=== PATIENT | female | born 1995 | race Caucasian/White ===

== ENCOUNTER 2022-12-03 08:49 | Outpatient (CLI) | payer MEDICAID, SELFPAY ==
[2022-12-03 09:32] LABS: Hematocrit 36.8 % (37.0-47.0); Hemoglobin 12.2 g/dL (12.0-15.0); Mean Corpuscular HGB Conc 33.2 g/dl (32-36); Mean Corpuscular Hemoglobin 29.3 pg (26-34); Mean Corpuscular Volume 88.5 fl (80-100); Mean Platelet Volume 9.6 fl (7.4-10.4); Platelet Count Result 309 k/mm3 (150-375); Red Blood Count 4.16 M/mm3 (4.2-5.4); Red Cell Distribution Width 13.2 % (11.5-14.5); White Blood Count 11.5 K/mm3 (4.5-10.0)
[2022-12-03 11:18] LABS: HIV 1/2 Ab P24 Ag Result Negative (Negative)
[2022-12-03 13:28] LABS: Hepatitis B Surface Antigen Negative (Negative); Rubella IgG Antibody 43.2 IU/ML
[2022-12-03 16:23] LABS: Rapid Plasma Reagin Non-Reactive (NonReactive)
[2022-12-07 15:18] LABS: CMV IgG Antibody >10.00 U/mL (<0.60)
== END 2022-12-03 08:50 | disposition home or self-care (01) ==
PROVIDERS: Visit Provider Student in an Organized Health Care Education/Training Program
DX: N94.89 Other specified conditions associated with female genital organs and menstrual cycle (principal)
CPT/HCPCS: 36415; 84702; 85027; 86592; 86644; 86703; 86747; 86762; 86787; 86850; 86900; 86901; 87086; 87088; 87340; G0432

== ENCOUNTER 2023-02-08 20:00 | Emergency (ER) | payer OTHER, SELFPAY ==
[2023-02-08] VITALS (9 sets, daily range): BP systolic 118–145; BP diastolic 71–85; PULSE 82–99; RESP 14–26; TEMP 36.4; O2SAT 99–100
--- NOTE | 2023-02-08 20:29 | ECG_ITS ---
Measurements Intervals [place] Rate: 89 P: 42 CA: 176 QRS: -3 QRSD: 89 T: 19 QT: 358 QTc: 436 Interpretive Statements SINUS RHYTHM NORMAL ELECTROCARDIOGRAM NO PREVIOUS ECG AVAILABLE FOR COMPARISON Electronically Signed On 02-09-2023 12:00:16 CDT by Dino Schofield M.D.
[2023-02-08 21:18] LABS: Alanine Aminotransferase 12 U/L (6-35); Albumin Level 4.1 g/dL (3.5-5.1); Alkaline Phosphatase 53 U/L (38-126); Anion Gap 9 mmol/L (8-16); Aspartate Amino Transferase 19 U/L (14-36); Bilirubin,Total 0.2 mg/dL (0.2-1.3); Blood Urea Nitrogen 6 mg/dL (7-17); Calcium 9.1 mg/dL (8.4-10.2); Carbon Dioxide 21 mmol/L (22-30); Chloride 107 mmol/L (98-107); Creatine Kinase 49 U/L (30-135); Estimated CRCL calculation 194 ml/min; Estimated Glomerular Filt Rate > 60; Glucose 87 mg/dL (65-110); Potassium 3.3 mmol/L (3.4-5.0); Sodium 137 mmol/L (137-145)
[2023-02-08 21:29] LABS: Troponin I < 0.012 ng/mL (0.000-0.034)
[2023-02-08 21:33] LABS: Appearance Urine Cloudy (Clear); Bacteria Urine 1+ /hpf; Bilirubin Urine Negative (Negative); Blood Urine Negative (Negative); Color Urine Yellow (Yellow); Glucose Urine UA Negative (Negative); Ketones Urine Negative (Negative); Leukocyte Esterase Ur 1+ LEU/UL (Negative); Need Manual Microscopic Reviewed; Nitrate Urine Negative (Negative); Non Pathogenic Casts 0-2; Protein Urine Negative (Negative); Specific Grav Ur 1.016 (1.001-1.035); Squamous Epithelial Cell Urine Many /hpf (Few); Urobilinogen Urine 0.2 mg/dL (<2.0); WBC Urine 21-50 /hpf; pH Urine 6.5 (5.0-9.0)
[2023-02-08 21:34] LABS: Basophils Percent Auto 0.2 % (0.2-1.2); Eosinophils Absolute Auto 0.3 K/mm3 (0-0.3); Hematocrit 32.8 % (37.0-47.0); Hemoglobin 11.4 g/dL (12.0-15.0); Immature Granulocyte Absolute 0.11 K/mm3 (0.00-0.031); Immature Granulocyte Percent A 0.9 % (0-0.5); Lymphocytes Absolute Auto 4.21 K/mm3 (0.9-3.2); Lymphocytes Percent Auto 33.1 % (18.3-44.2); Mean Corpuscular HGB Conc 34.8 g/dl (32-36); Mean Corpuscular Hemoglobin 31.2 pg (26-34); Mean Corpuscular Volume 89.9 fl (80-100); Mean Platelet Volume 10.1 fl (7.4-10.4); Monocytes Absolute Auto 0.6 K/mm3 (0.1-0.6); Neutrophils Absolute Auto 7.5 K/mm3 (1.3-6.7); Neutrophils Percent Auto 58.8 % (45.5-73.1); Platelet Count Result 300 k/mm3 (150-375); Red Blood Count 3.65 M/mm3 (4.2-5.4); White Blood Count 12.7 K/mm3 (4.5-10.0)
[2023-02-08 21:35] LABS: Add Urine Microscopic? YES
--- NOTE | 2023-02-08 21:42 | ED.GENADULT ---
HPI - General Adult General Chief complaint: Unspecified Stated complaint: burn Time Seen by Provider: 02/08/23 20:27 Source: patient Mode of arrival: ambulatory Limitations: no limitations History of Present Illness HPI narrative: Patient is a 27 y/o female who presents to the ED with c/o an electrical shock to her left upper extremity. Patient reports she went to turn on her wax machine tonight when she felt an electrical shock when she flipped the switch. She states she felt another electrical shock when she went to unplug the wax machine from the wall. This was a normal household outlet. Patient then prompted here for further evaluation. She is currently 17 weeks . BILINGUAL ACCOUNT MANAGER is Dr. Brandt. Patient denies any abdominal pain or vaginal bleeding. She is still feeling baby move. She initially reported having some pain and tingling in her left arm after the shocks, but states this has since resolved. Denies any numbness. Denies dizziness or lightheadedness. Denies chest pain or shortness of breath. Related Data Allergies Allergy/AdvReac Type Severity Reaction Status Date / Time No Known Allergies Allergy Verified 12/22/22 10:10 Review of Systems Review of Systems: CONSTITUTIONAL: Denies fever, chills, or sweats. CARDIOVASCULAR: Denies chest pain. RESPIRATORY: Denies dyspnea. GASTROINTESTINAL: Denies abdominal pain, nausea, vomiting, or diarrhea. GENITOURINARY: Denies vaginal bleeding, dysuria or hematuria. MUSCULOSKELETAL: See HPI. NEUROLOGIC: See HPI. All systems reviewed & are unremarkable except as noted in HPI and below PMFSH Past Medical History Medical History Collapse, lung Suppression of menses Surgical History Surgical History Hx of cholecystectomy Family History Family History Grandparent Lung cancer Social History Social History Smoking status: Current every day smoker Tobacco type: cigarettes Alcohol intake: former Substance use: never Lack of Transportation: No Lack of Food: Never True Current Housing: I Have Housing Concerned About Future Housing: No Difficulty Paying Gas/Electric Bills: No Difficulty Paying for Meds: No Currently Unemployed: YES Education: High School Diploma/GED Difficulty w/ Childcare or Family Care: No Living arrangements: other Additional living arrangements comments: spouse and child Occupation/Education: unemployed Gender identity (if verbalized by the patient): Female Sexual Orientation (if Verbalized by the Patient): Straight or Heterosexual Exam Narrative: GENERAL: Well appearing, obese with BMI of 36.3, non-toxic, in no acute distress. HEAD: Normocephalic, atraumatic. NECK: Supple. No adenopathy, no masses. RESPIRATORY: Airway patent, respirations nonlabored. Clear to auscultation bilaterally, no rales, rhonchi, wheezing. CARDIOVASCULAR: Regular rate and rhythm without murmurs, rubs, or gallops. Peripheral pulses 2+ and equal bilaterally. ABDOMINAL: Soft, uterus gravid, nontender, nondistended, no hepatosplenomegaly. Normoactive BS. MUSCULOSKELETAL: Moves all extremities. Strength/ROM intact without gross deformities. Full range of motion of left upper extremity. Sensation intact. Good capillary refill. No agudelo or skin changes to left upper extremity. SKIN: Warm, dry, normal color. No rashes. NEURO: A&O X3. Speech clear. Cranial nerves II-XII grossly intact. Steady gait. No ataxic movements. No focal deficits. PSYCHIATRIC: Appropriate mood and affect. Normal interaction. Course Vital Signs Vital signs: Vital Signs Temperature 97.6 F 02/08/23 20:03 Pulse Rate 99 02/08/23 20:03 Respiratory Rate 14 02/08/23 20:03 Blood Pressure 145/80 H 02/08/23 20:03 P
[2023-02-08] MEDS: POTASSIUM CHLORIDE 20 MEQ PACKET (FOR LIQUID) PO (22:01)
[2023-02-08] MEDS: CEPHALEXIN 500 MG CAPSULE PO (22:01)
[2023-02-09 01:04] VITALS: BP 111/60; PULSE 77; RESP 16; O2SAT 97
--- NOTE | 2023-02-09 02:59 | PC.NURSE ---
This RN went into pt room to discharge pt and remove her IV, pt then stated i took the IV out already. Pt was instructed to let a medical professional remove them in the future. Pt verbalized understanding.
== END 2023-02-09 03:01 | disposition home or self-care (01) ==
PROVIDERS: Emergency Provider Physician Assistant
DX: O23.42 Unspecified infection of urinary tract in pregnancy, second trimester (principal); T75.4XXA Electrocution, initial encounter; Z3A.17 17 weeks gestation of pregnancy; W86.8XXA Exposure to other electric current, initial encounter
CPT/HCPCS: 36415; 80053; 81001; 82550; 84484; 85025; 87086; 93005; 99284; A9270

== ENCOUNTER 2023-03-01 23:18 | Emergency (ER) | payer OTHER, SELFPAY ==
[2023-03-01 23:26] VITALS: BP 147/76; PULSE 98; RESP 15; TEMP 36.9; O2SAT 100
[2023-03-01 23:42] LABS: Basophils Percent Auto 0.2 % (0.2-1.2); Eosinophils Absolute Auto 0.2 K/mm3 (0-0.3); Eosinophils Percent Auto 1.6 % (0-4.4); Hematocrit 33.7 % (37.0-47.0); Hemoglobin 11.5 g/dL (12.0-15.0); Immature Granulocyte Absolute 0.09 K/mm3 (0.00-0.031); Immature Granulocyte Percent A 0.6 % (0-0.5); Lymphocytes Absolute Auto 3.61 K/mm3 (0.9-3.2); Lymphocytes Percent Auto 25.7 % (18.3-44.2); Mean Corpuscular HGB Conc 34.1 g/dl (32-36); Mean Corpuscular Hemoglobin 31.3 pg (26-34); Mean Corpuscular Volume 91.6 fl (80-100); Mean Platelet Volume 9.9 fl (7.4-10.4); Monocytes Absolute Auto 0.6 K/mm3 (0.1-0.6); Monocytes Percent Auto 4.4 % (2.6-8.5); Neutrophils Absolute Auto 9.5 K/mm3 (1.3-6.7); Neutrophils Percent Auto 67.5 % (45.5-73.1); Platelet Count Result 275 k/mm3 (150-375); Red Blood Count 3.68 M/mm3 (4.2-5.4); Red Cell Distribution Width 12.6 % (11.5-14.5)
[2023-03-01 23:57] LABS: Alanine Aminotransferase 13 U/L (6-35); Albumin Level 4.2 g/dL (3.5-5.1); Alkaline Phosphatase 58 U/L (38-126); Anion Gap 10 mmol/L (8-16); Aspartate Amino Transferase 26 U/L (14-36); Bilirubin,Total 0.2 mg/dL (0.2-1.3); Blood Urea Nitrogen 4 mg/dL (7-17); Calcium 9.6 mg/dL (8.4-10.2); Carbon Dioxide 21 mmol/L (22-30); Chloride 105 mmol/L (98-107); Estimated CRCL calculation 191 ml/min; Estimated Glomerular Filt Rate > 60; Glucose 92 mg/dL (65-110); Potassium 3.4 mmol/L (3.4-5.0); Sodium 136 mmol/L (137-145)
[2023-03-02 00:04] LABS: Total Protein Urine Random 17 mg/dL; Ur Ttl Prot Creatinine Ratio 0.44 mg/mg (0-0.20)
[2023-03-02 00:06] LABS: Appearance Urine Cloudy (Clear); Bacteria Urine Rare /hpf; Bilirubin Urine Negative (Negative); Blood Urine Negative (Negative); Color Urine Yellow (Yellow); Glucose Urine UA Negative (Negative); Ketones Urine Negative (Negative); Leukocyte Esterase Ur Negative LEU/UL (Negative); Need Manual Microscopic Reviewed; Nitrate Urine Negative (Negative); Non Pathogenic Casts 0-2; Protein Urine Negative (Negative); Specific Grav Ur 1.009 (1.001-1.035); Squamous Epithelial Cell Urine Moderate /hpf (Few); Urobilinogen Urine 0.2 mg/dL (<2.0); pH Urine 6.5 (5.0-9.0)
[2023-03-02 00:07] LABS: Uric Acid 3.3 mg/dL (2.5-7.5)
[2023-03-02 00:14] LABS: Add Urine Microscopic? YES
[2023-03-02] MEDS: METOCLOPRAMIDE HCL 10 MG TABLET PO (00:49)
[2023-03-02] MEDS: IBUPROFEN 600 MG TABLET PO (00:49)
[2023-03-02] MEDS: diphenhydrAMINE HCl CAP 25 MG CAPSULE PO (00:49)
--- NOTE | 2023-03-02 00:49 | ED.GENADULT ---
HPI - General Adult General Chief complaint: Recheck/Abnormal Lab/Rx Stated complaint: headache, vision changes, speech problems Time Seen by Provider: 03/02/23 00:35 History of Present Illness HPI narrative: Patient presents to the emergency department with a headache and intermittent episodes of difficulty speaking as well as spots in her vision. She had preeclampsia with her first . And is concerned that it may be starting again. Upon arrival her blood pressure was 147/76. After sitting in the waiting room for a little bit repeat blood pressure is 130s over 70s. She still does not feel well. She has a history of migraines but states this feels different more secondary to the elevated blood pressure. She has taken Tylenol at home without improvement of her symptoms. She is 20 weeks . Denies abdominal pain vaginal discharge or bleeding Related Data Allergies Allergy/AdvReac Type Severity Reaction Status Date / Time No Known Allergies Allergy Verified 02/18/23 09:34 Review of Systems Review of Systems: Review of systems negative except what is [facility] Past Medical History Medical History Collapse, lung Suppression of menses Surgical History Surgical History Hx of cholecystectomy Family History Family History Grandparent Lung cancer Social History Social History Smoking status: Current every day smoker Tobacco type: cigarettes Alcohol intake: former Substance use: never Lack of Transportation: No Lack of Food: Never True Current Housing: I Have Housing Concerned About Future Housing: No Difficulty Paying Gas/Electric Bills: No Difficulty Paying for Meds: No Currently Unemployed: YES Education: High School Diploma/GED Difficulty w/ Childcare or Family Care: No Living arrangements: other Additional living arrangements comments: spouse and child Occupation/Education: unemployed Gender identity (if verbalized by the patient): Female Sexual Orientation (if Verbalized by the Patient): Straight or Heterosexual Exam Narrative: GENERAL: Well-appearing, well-nourished, and in no acute distress. HEAD: Normocephalic, atraumatic. EYES: PERRLA and EOMI. ENT: Nares clear, no rhinorrhea or epistaxis. Mucous membranes moist. NECK: Supple. CHEST: Clear to auscultation. No respiratory distress. HEART: Regular rate and rhythm. ABDOMEN: Soft, nontender, nondistended. EXTREMITIES: Normal range of motion. No edema. SKIN: Warm, dry, no rash. NEURO: No focal deficits. Alert and oriented x3. PSYCH: Normal mood and affect. Course Course Emergency Course: Less likely preeclampsia and more likely blood pressure secondary to headache Blood pressure already improved prior to headache resolution Ibuprofen Frankie and Reglan ordered One-time dose of ibuprofen safe at 20 weeks Vital Signs Vital signs: Vital Signs Temperature 36.9 C 03/01/23 23:26 Pulse Rate 98 03/01/23 23:26 Respiratory Rate 15 03/01/23 23:26 Blood Pressure 147/76 H 03/01/23 23:26 Pulse Oximetry 100 03/01/23 23:26 Oxygen Delivery Room Air 03/01/23 23:26 Temperature 36.9 C 03/01/23 23:26 Pulse Rate 94 03/02/23 01:41 Respiratory Rate 18 03/02/23 01:41 Blood Pressure 102/67 03/02/23 02:11 Pulse Oximetry 100 03/02/23 01:41 Oxygen Delivery Room Air 03/01/23 23:26 Medical Decision Making MDM Narrative Medical decision making narrative: Labs ordered and reviewed. Unremarkable. No proteinuria. Uric acid normal and liver enzymes normal. Blood pressure resolved with headache treatment. Patient reassured and advised to follow-up with her MATERIAL REQUIREMENTS PLANNING MANAGER doctor Vital Signs Vital Signs: Vital Signs Temperature 36.9 C
[2023-03-02 01:04] VITALS: BP 133/83; PULSE 104; RESP 20; O2SAT 100
[2023-03-02 01:18] VITALS: BP 119/78
[2023-03-02 01:41] VITALS: BP 119/75; PULSE 94; RESP 18; O2SAT 100
[2023-03-02 02:11] VITALS: BP 102/67
[2023-03-02 02:49] VITALS: BP 117/80; PULSE 97; RESP 16; O2SAT 98
== END 2023-03-02 02:51 | disposition home or self-care (01) ==
PROVIDERS: Emergency Provider Emergency Medicine
DX: O13.2 Gestational [pregnancy-induced] hypertension without significant proteinuria, second trimester (principal); R51.9 Headache, unspecified; O99.332 Smoking (tobacco) complicating pregnancy, second trimester; F17.210 Nicotine dependence, cigarettes, uncomplicated; Z90.49 Acquired absence of other specified parts of digestive tract; Z3A.20 20 weeks gestation of pregnancy
CPT/HCPCS: 36415; 80053; 81001; 82570; 84156; 84550; 85025; 87086; 87088; 99283; A9270

== ENCOUNTER 2023-04-20 10:47 | Outpatient (CLI) | payer OTHER, SELFPAY ==
[2023-04-20 12:41] LABS: Basophils Percent Auto 0.3 % (0.2-1.2); Eosinophils Absolute Auto 0.1 K/mm3 (0-0.3); Eosinophils Percent Auto 1.1 % (0-4.4); Hematocrit 33.3 % (37.0-47.0); Immature Granulocyte Absolute 0.08 K/mm3 (0.00-0.031); Immature Granulocyte Percent A 0.7 % (0-0.5); Lymphocytes Percent Auto 23.7 % (18.3-44.2); Mean Corpuscular Hemoglobin 30.2 pg (26-34); Mean Corpuscular Volume 91.5 fl (80-100); Mean Platelet Volume 10.3 fl (7.4-10.4); Monocytes Absolute Auto 0.6 K/mm3 (0.1-0.6); Monocytes Percent Auto 5.8 % (2.6-8.5); Neutrophils Absolute Auto 7.5 K/mm3 (1.3-6.7); Neutrophils Percent Auto 68.4 % (45.5-73.1); Platelet Count Result 306 k/mm3 (150-375); Red Blood Count 3.64 M/mm3 (4.2-5.4); Red Cell Distribution Width 12.8 % (11.5-14.5)
[2023-04-20 13:03] LABS: Alanine Aminotransferase 11 U/L (6-35); Alkaline Phosphatase 89 U/L (38-126); Anion Gap 8 mmol/L (8-16); Aspartate Amino Transferase 17 U/L (14-36); Bilirubin,Total 0.4 mg/dL (0.2-1.3); Blood Urea Nitrogen 5 mg/dL (7-17); Calcium 9.1 mg/dL (8.4-10.2); Carbon Dioxide 22 mmol/L (22-30); Chloride 105 mmol/L (98-107); Estimated Glomerular Filt Rate > 60; Glucose 116 mg/dL (65-110); Glucose 1 Hour PP 50gm Dose 116 mg/dL; Potassium 3.2 mmol/L (3.4-5.0); Sodium 135 mmol/L (137-145)
[2023-04-20 13:32] LABS: HIV 1/2 Ab P24 Ag Result Negative (Negative)
== END 2023-04-20 10:48 | disposition home or self-care (01) ==
LOC: ANHLAB 10:48
PROVIDERS: Visit Provider Obstetrics & Gynecology
DX: Z87.59 Personal history of other complications of pregnancy, childbirth and the puerperium (principal)
CPT/HCPCS: 36415; 80053; 82947; 85025; 86703; G0432

== ENCOUNTER 2023-05-03 09:45 | Outpatient (CLI) | payer BC, OTHER, SELFPAY ==
[2023-05-03 10:52] LABS: Creatinine Urine 133.7 mg/dL
[2023-05-03 11:01] LABS: Creatinine 24 Hour Urine 1.4 gm/24 (0.8-1.8); Total Volume 24 Hour Urine 1100 ml
== END 2023-05-03 09:46 | disposition home or self-care (01) ==
LOC: ANHLAB 09:46
PROVIDERS: Visit Provider Obstetrics & Gynecology
DX: Z34.90 Encounter for supervision of normal pregnancy, unspecified, unspecified trimester (principal); Z3A.00 Weeks of gestation of pregnancy not specified
CPT/HCPCS: 81050; 82570

== ENCOUNTER 2023-05-24 22:31 | Observation (INO) | payer OTHER, SELFPAY ==
[2023-05-24 23:04] VITALS: BP 117/53; PULSE 115
[2023-05-24 23:15] VITALS: BP 115/68; PULSE 105
[2023-05-24 23:25] VITALS: BMI 35.3
[2023-05-24 23:25] LABS: Appearance Urine Clear (Clear); Bacteria Urine None Seen /hpf; Bilirubin Urine Negative (Negative); Blood Urine Negative (Negative); Color Urine Yellow (Yellow); Glucose Urine UA Negative (Negative); Ketones Urine 1+ mg/dL (Negative); Leukocyte Esterase Ur Trace LEU/UL (Negative); Nitrate Urine Negative (Negative); Non Pathogenic Casts 0-2; Protein Urine Negative (Negative); RBC Urine 0-2 /hpf (0-2); Specific Grav Ur 1.022 (1.001-1.035); Squamous Epithelial Cell Urine Few /hpf (Few)
--- NOTE | 2023-05-24 23:25 | OBADM ---
This patient, Jenny Anderson, admitted to the OB room OB Post 116 for observation. Patient/family oriented to hospital policies and general routines including ID bracelet, bed and alarms, visiting hours, pain management, procedures, bathroom and other care routines, personal items, smoking policy, room service/diet, and visiting hours. Patient/Family are encouraged to report perceived risks to care and to ask questions if they do not understand what they are told or what they should do.
[2023-05-24 23:29] LABS: Add Urine Microscopic? YES
[2023-05-24 23:30] VITALS: BP 124/76; PULSE 105
[2023-05-24 23:45] VITALS: BP 118/81; PULSE 107
[2023-05-25] VITALS: BP 108/74; PULSE 97
--- NOTE | 2023-05-25 01:25 | P.PNOB_ITS ---
OB - Triage/Final Diagnosis Visit Information Comments/Additional reasons for admission: I have assessed the risk for this patient, Jenny Anderson, and determined that she would benefit from observation care. Evaluation Laboratory results: Laboratory Tests 05/24/23 23:10 Urine Color Yellow Urine Appearance Clear Urine pH 6.0 Ur Specific [place] 1.022 Urine Protein Negative Urine Glucose (UA) Negative Urine Ketones 1+ H Ur Blood (Man) Negative Urine Nitrate Negative Urine Bilirubin Negative Urine Urobilinogen 1.0 Leukocyte Esterase Rfl Trace H Urine RBC 0-2 Urine WBC 11-20 H Ur Squamous Epith Cells Few Urine Bacteria None seen Urine Casts 0-2 Vital signs: Vital Signs - 24 hr 05/24/23 23:04 05/24/23 23:15 05/24/23 23:30 Pulse Rate 115 H 105 H 105 H Blood Pressure 117/53 L 115/68 124/76 Oxygen Delivery 05/24/23 23:45 05/25/23 00:00 05/24/23 23:25 Pulse Rate 107 H 97 Blood Pressure 118/81 108/74 Oxygen Delivery Room Air Final Diagnosis (1) Decreased movement: Code(s): O36.8190 - Decreased movements, unspecified trimester, not applicable or unspecified Status: Acute
== END 2023-05-25 01:18 | disposition home or self-care (01) ==
PROVIDERS: Admitting Provider Obstetrics & Gynecology; Visit Provider Obstetrics & Gynecology
DX: O36.8130 Decreased fetal movements, third trimester, not applicable or unspecified (principal); Z3A.32 32 weeks gestation of pregnancy
CPT/HCPCS: 81001; 87086; 87088; G0378; G0379

== ENCOUNTER 2023-06-15 08:41 | Outpatient (RCR) | payer OTHER, SELFPAY ==
[2023-06-08 12:00] VITALS: BP 125/71; PULSE 83
--- NOTE | ~2023-06-15 | US_ITS ---
EXAMINATION: US OB BPP wo non-stress DATE: 06/15/2023 09:35 INDICATION: Large for gestational age during third trimester TECHNIQUE: Real-time pelvic ultrasound was performed. The interpreting radiologist was not present fo r the study. COMPARISON: None. FINDINGS: There is a single living fetus in vertex presentation. The placenta is posterior. Amniotic fluid vol ume is subjectively normal. heart rate is 132 beats per minute (bpm). Biophysical profile performed by the technologist: breathing (30 sec sustained breathing in 30 minutes): 2 out of 2 movement (3 gross body movements in 30 minutes): 2 out of 2 tone (one episode of yxxshds-ojktppxxp-zrxycmd limb movement): 2 out of 2 Amniotic fluid pocket (2 cm): 2 out of 2 Total score: 8 out of 8 IMPRESSION: 1. Single living fetus in vertex presentation with heart rate of 132 bpm. 2. Biophysical profile 8 out of 8. Reviewed, dictated and finalized at location [facility]
--- NOTE | ~2023-06-15 | US_ITS ---
EXAMINATION: US OB BPP wo non-stress DATE: 06/08/2023 11:57 NURSE PRACTITIONER PHYSICIANS ASSISTANT INDICATION: Large for gestational age. TECHNIQUE: Real-time transabdominal obstetric ultrasound. FINDINGS: No prior studies for comparison. There is a single living fetus in vertex presentation. The placenta is anterior. cardiac activity and movement is noted with a heart rate of 142 beats per minute. Biophysical profile: breathin of 2 movement: 2 of 2 tone: 2 of 2 Amniotic flud pocket: 2 of 2 Total score: 8 of 8 IMPRESSION: 1. Single living intrauterine in vertex presentation. 2: Total biophysical profile score of 8/8. Reviewed, dictated and finalized at location [facility] PRACTITIONER PHYSICIANS ASSISTANT
[2023-06-15 09:40] VITALS: BP 103/68; PULSE 90
== END 2023-09-06 23:59 | disposition home or self-care (01) ==
LOC: ANHOBOP 08:41
PROVIDERS: Visit Provider Obstetrics & Gynecology
DX: O36.63X0 Maternal care for excessive fetal growth, third trimester, not applicable or unspecified (principal); Z3A.34 34 weeks gestation of pregnancy; Z3A.35 35 weeks gestation of pregnancy
CPT/HCPCS: 59025; 76819

== ENCOUNTER 2023-06-20 17:50 | Inpatient (IN) | payer OTHER, SELFPAY ==
[2023-06-20] VITALS (16 sets, daily range): BP systolic 109–133; BP diastolic 75–87; PULSE 75–101; RESP 16; TEMP 36.4–36.8; O2SAT 93–96; BMI 35.9
--- NOTE | 2023-06-20 18:43 | P.PNAN_ITS ---
Anes - Eval Pre Procedure Procedure: labor epidural Date/Time: 06/20/23 18:43 Pre Op Diagnosis: Leaking Patient Data Age: 28 Gender: F Height: Weight: Allergies Allergy/AdvReac Type Severity Reaction Status Date / Time No Known Allergies Allergy Verified 06/09/23 10:34 Home Medications Medication Instructions Recorded Confirmed Type aspirin 81 mg tablet,delayed 81 mg PO DAILY 04/14/23 06/09/23 History release (Adult Low Dose Aspirin) vitamins-iron fumarate 65 1 tablet PO DAILY 04/14/23 06/09/23 History mg iron-folic acid 1 mg tablet Patient hx anesthesia problems: none Family hx anesthesia problems: none Results Review: All pre-operative results and documents have been reviewed as part of the pre- operative evaluation. FOR[facility]LY [facility], [facility] Past Medical History Medical History Collapse, lung Encounter for screening examination for sexually transmitted disease Suppression of menses Surgical History Surgical History Hx of cholecystectomy Family History Family History Grandparent Lung cancer Social History Social History Smoking status: Current every day smoker Tobacco type: cigarettes Alcohol intake: former Substance use: never Lack of Transportation: No Lack of Food: Never True Current Housing: I Have Housing Concerned About Future Housing: No Difficulty Paying Gas/Electric Bills: No Difficulty Paying for Meds: No Currently Unemployed: No Education: High School Diploma/GED Difficulty w/ Childcare or Family Care: No Living arrangements: other Additional living arrangements comments: spouse and child Occupation/Education: unemployed Gender identity (if verbalized by the patient): Female Sexual Orientation (if Verbalized by the Patient): Straight or Heterosexual Exam Day of Procedure 06/20/23 18:43 Patient weight: obese Heart: regular rate and rhythm Lungs: normal air movement Airway: Mallampati scale Neurological: alert and oriented
[2023-06-20 19:08] LABS: Basophils Percent Auto 0.2 % (0.2-1.2); Eosinophils Absolute Auto 0.1 K/mm3 (0-0.3); Eosinophils Percent Auto 0.5 % (0-4.4); Hematocrit 33.9 % (37.0-47.0); Hemoglobin 10.8 g/dL (12.0-15.0); Immature Granulocyte Absolute 0.06 K/mm3 (0.00-0.031); Immature Granulocyte Percent A 0.4 % (0-0.5); Lymphocytes Absolute Auto 3.14 K/mm3 (0.9-3.2); Lymphocytes Percent Auto 23.5 % (18.3-44.2); Mean Corpuscular HGB Conc 31.9 g/dl (32-36); Mean Corpuscular Hemoglobin 26.7 pg (26-34); Mean Corpuscular Volume 83.7 fl (80-100); Mean Platelet Volume 10.9 fl (7.4-10.4); Monocytes Absolute Auto 0.5 K/mm3 (0.1-0.6); Monocytes Percent Auto 3.4 % (2.6-8.5); Neutrophils Absolute Auto 9.6 K/mm3 (1.3-6.7); Platelet Count Result 276 k/mm3 (150-375); Red Blood Count 4.05 M/mm3 (4.2-5.4); Red Cell Distribution Width 13.7 % (11.5-14.5); White Blood Count 13.4 K/mm3 (4.5-10.0)
--- NOTE | 2023-06-20 19:09 | LDADM ---
This patient, Jenny Anderson, was admitted to Labor/Delivery/Recovery 104 on 06/20/23 at 17:50. Plans for labor, pain management and were discussed with patient. Patient/family oriented to hospital policies and general routines including ID bracelet, bed and alarms, visiting hours, pain management, procedures, bathroom and other care routines, personal items, smoking policy, room service/diet and guest tray routines, security routines, and visiting hours. Patient/Family are encouraged to report perceived risks to care and to ask questions if they do not understand what they are told or what they should do. See OBIX for further documentation.
[2023-06-20 19:22] LABS: Uric Acid 4.6 mg/dL (2.5-7.5)
[2023-06-20 19:26] LABS: Alanine Aminotransferase 12 U/L (6-35); Albumin Level 3.4 g/dL (3.5-5.1); Alkaline Phosphatase 219 U/L (38-126); Anion Gap 12 mmol/L (8-16); Aspartate Amino Transferase 17 U/L (14-36); Bilirubin,Total 0.3 mg/dL (0.2-1.3); Blood Urea Nitrogen 6 mg/dL (7-17); Calcium 8.8 mg/dL (8.4-10.2); Carbon Dioxide 18 mmol/L (22-30); Chloride 106 mmol/L (98-107); Estimated Glomerular Filt Rate > 60; Glucose 110 mg/dL (65-110); Potassium 3.6 mmol/L (3.4-5.0); Sodium 136 mmol/L (137-145)
[2023-06-20] MEDS: LACTATED RINGERS 1,000 ML 125 ML IV CONT (21:26)
[2023-06-20] MEDS: AMPICILLIN 2 GM/NS 100 ML 2 GM/100 ML BAG IVPB (21:26)
[2023-06-21] VITALS (47 sets, daily range): BP systolic 89–242; BP diastolic 59–219; PULSE 25–210; RESP 16–20; TEMP 36.1–36.8; O2SAT 58–100
[2023-06-21] MEDS: AMPICILLIN 1 GM/NS 50 ML 1 GM/50 ML BAG IVPB ×2 (01:26→05:34)
[2023-06-21] MEDS: OXYTOCIN 30 UNITS/NS 500 ML 30 UNITS/500 ML BAG IV CONT (03:33)
[2023-06-21] MEDS: CALCIUM CARBONATE (TUMS) 500 MG (200 MG ELEMENTAL) PO (04:37)
[2023-06-21] MEDS: LACTATED RINGERS 1,000 ML 999 ML IV CONT ×2 (06:01→07:03)
[2023-06-21] MEDS: fentaNYL CITRATE INJ (*CRX) 100 MCG/2 ML VIAL 50 MCG IV PUSH ×2 (07:16→08:11)
--- NOTE | 2023-06-21 07:27 | PCWOUND ---
WOCN NOTE Received nurse driven consult that pressure ulcer present. Spoke with patient's day RN, who states that was documented in error. Patient has no wounds.
[2023-06-21] MEDS: ACETAMINOPHEN 325 MG TABLET 650 MG PO (09:30)
--- NOTE | 2023-06-21 09:30 | PM.OBPRVD ---
OB - Vaginal Delivery Note Procedure Delivery date: 06/21/23 Induction method: None Delivery augmentation: Rupture of Membranes and Pitocin Delivery monitor: External FHT and External Uterine Route of delivery: Episiotomy description: None Laceration Description: Periurethral Specimen: No Quantitative Blood Loss (ml): 100 Anesthesia type: None Disposition: Floor Complications: No immediate complications Narrative: patient was unmedicated and preferred to push in hands and knees positioning. Patient pushed for a spontaneous vaginal delivery. The fetus was delivered atraumatically. The cord was clamped and cut after 1 minute of life. Cord blood was collected for blood type and Coomb's testing. The placenta delivered spontaneously and was noted to be intact. The perineum was inspected and noted to be intact. There was a superficial periurethral laceration that was hemostatic. The uterus was firm and good hemostasis was noted. Baby Date of : 06/21/23 Time of : 09:12 Weeks of gestation at delivery: 36 gender: Male presentation: vertex position: Right Occiput Anterior Placenta delivery description: Spontaneous Cord Vessel Description: Nuchal Cord AMG Delivery Billing Delivery Delivery: Delivery Charge
[2023-06-21] MEDS: OXYTOCIN 30 UNITS/NS 500 ML 30 UNITS/500 ML BAG 125 UNITS IV CONT (09:40)
[2023-06-21] MEDS: WITCH HAZEL 40 PADS 1 PAD TOPICAL (11:22)
[2023-06-21] MEDS: BENZOCAINE 20% AER SPR (*SP) 56 GM CAN 1 SPRAY TOPICAL (11:23)
[2023-06-21] MEDS: IBUPROFEN 600 MG TABLET PO (14:51)
[2023-06-21 15:49] LABS: Rapid Plasma Reagin Non-Reactive (NonReactive)
[2023-06-22] MEDS: IBUPROFEN 600 MG TABLET PO ×3 (01:00→16:54)
[2023-06-22] MEDS: ACETAMINOPHEN 325 MG TABLET 650 MG PO (04:23)
[2023-06-22 05:38] LABS: Hematocrit 30.6 % (37.0-47.0); Hemoglobin 9.5 g/dL (12.0-15.0)
[2023-06-22 07:10] VITALS: BP 102/62; PULSE 75; RESP 16; TEMP 37.1; O2SAT 96
--- NOTE | 2023-06-22 07:27 | WPDANLDPN2 ---
Anes-Prog Note L&D Date/Time: 06/22/23 07:27 Comfortable throughout: labor and delivery Neuraxial method: epidural Epidural/Spinal procedure site: clean & non-tender Neuro status: Neuro function grossly intact. Cardiovascular status: normal Respiratory status: normal Airway patency: baseline Mental status: baseline Post-Op hydration status: normal Vital Signs: Last Vital Signs Temp 36.6 C 06/21/23 23:50 Pulse 71 06/21/23 23:50 Resp 18 06/21/23 23:50 BP 119/66 06/21/23 23:50 Pulse Ox 95 06/21/23 17:37 O2 Del Method Room Air 06/21/23 23:50 Pain score (VAS): 10 I/O: Intake & Output 06/21/23 06/21/23 06/22/23 15:59 23:59 07:59 Intake Total 500 Output Total 250 Balance 250 Post-procedural complaints: none Patient feedback: Patient satisfied with anesthetic care.
[2023-06-22] MEDS: MULTIVIT/MIN/PREN/FOL AC/IRON TABLET 1 TAB PO (07:28)
[2023-06-22] MEDS: POLYSACCHARIDE IRON COMPLEX 150 MG CAPSULE PO ×2 (07:28→16:54)
[2023-06-22] MEDS: DOCUSATE SODIUM 100 MG CAPSULE PO ×2 (07:28→16:55)
--- NOTE | 2023-06-22 11:41 | PC.NURSE ---
0900 - Purposefully rounded to assess needs. Father of baby is in the bed and states Mother is outside and is in the nursery for testing. Name was written on the communication board and father was encouraged to call if there is a request for assistance, questions or concerns. Primary RN reported helping with latching around [phone] with mother having her own interesting position and infant's blood sugar resulted recently at 71mg/dl.
--- NOTE | 2023-06-22 14:47 | PC.NURSE ---
[id number] Purposefully rounded to introduce, then consulted with patient to assess needs related to . Mother led the conversation with her?plans to feed?her infant, the?experience so far, her experience of successfully her first child. Mother is laying on her right side attempting to latch infant to the left breast. With mother's consent LC assisted with a laid-back position for to latch. 36 EGA latches shallow, dimpling is seen on the cheek, will occasionally latch appropriately and suckle for a few sucks, then holds the nipple in his mouth. We discussed the dimpling is a sign of not effectively . We reviewed big, open wide gape with the teacup hold to get the nipple to the soft palate instead of in the front of his mouth. Mother is able to hand express colostrum from her breast, has breastfed before, however; she attempts to latch with her fingers where the infant's lips need to go for an optimal latch. Encouraged understanding of the benefits of skin to skin (demonstrating unwrapping infant and placing upright on her chest), stimulating with massage touch, changing positions to encourage wakefulness, how to watch for early feeding cues, responsive feeding, feeding on demand (aiming for 8-12 times in 24 hours, about every 2-3 hours), milk production, building/maintaining a milk supply, duration of feeding, signs of adequate intake/output and how to record on the feeding sheet. Mother works well with her infant with encouragement and education. We reviewed protecting the nipple with optimal positioning and latching. Discussed with mother of protecting her milk supply with initiating pumping when doesn't latch, receives a bottle, has a weak suck, and or holds nipple in his mouth. Primary RN is pace-bottle feeding . Breast pump provided due to ineffective . Instructions given on cleaning, care, usage, that there should be no pain, pumping schedule for milk production, collection, and storage of human milk. Patient was assessed for correct placement, flange size, to pump for comfort and nipple stretching/stimulation for adequate milk production aiming for 8-10 breast stimulations in 24 hours between infant and pumping. Mother has a wide space between her tubular breast with nipples facing inward. There is an appearance of hypoplastic breast, however; mother states she breastfed her first successfully. Inpatient/outpatient resources provided with feeding sheet, name written on the communication board, and the mom/baby guide. Mother voiced understanding of information, demonstrated learning and will call if there is a request for assistance. Primary RN is present in the room.
[2023-06-22 19:30] VITALS: BP 110/62; PULSE 65; RESP 16; TEMP 37.1
--- NOTE | 2023-06-23 08:48 | P.DS_ITS ---
DS: Admitting Diagnosis Discharge Date 06/23/23 Admitting Diagnosis intrauterine at 36w premature rupture of membranes DS: Discharge Diagnosis Discharge Diagnosis (1) Normal vaginal delivery: Code(s): O80 - Encounter for full-term uncomplicated delivery Status: Acute OB - DS: Summary OB Procedures : None OB Procedures Intrapartum: Spontaneous Vag Delivery OB Procedures: : None Peripartum Data Laceration Description: Periurethral Episiotomy description: None Status at Discharge Functional status at discharge: independent ambulation Overall status at discharge: patient is back to baseline Time Spent with Patient Time attestation: Total time spent providing and/or coordinating discharge services: Time spent: Less than 30 minutes Exam Const: General: comfortable and no acute distress Resp: Effort & Inspection: normal respiratory effort Auscultation: clear to auscultation bilaterally Cardio: Rate: regular rate GI: GI Palp: Yes Soft to palpation Auscultation: normal bowel sounds Other: Fundus firm below umbilicus Psych: Appearance: grossly normal Mental Status: mental status grossly normal Affect: normal affect Discharge Plan Discharge Discharging Clinician: Adrián Brandt Patient Disposition: Home, Self-Care Activity: as tolerated and pelvic rest Diet: regular Patient Instructions: Antibiotic Form, How to Stop Smoking (DC), Vaginal Delivery (DC) Stand Alone Forms: General Discharge Information Follow-up/Referrals: Adrián Brandt MD [Physician] - Discharge Medications: New acetaminophen 500 mg tablet 500 mg PO Q6H PRN (Reason: pain) Qty: 30 0RF ibuprofen 600 mg tablet 600 mg PO Q6H PRN (Reason: pain) Qty: 30 0RF Continued vit-iron fum-folic ac 65 mg iron- 1 mg tablet 1 tablet PO DAILY Discontinued aspirin [Adult Low Dose Aspirin] 81 mg tablet,delayed release (DR/EC) 81 mg PO DAILY Date of admission: 06/20/23 17:50 Primary Care Provider: PHYSICIAN,OFFSET DUPLICATING MACHINE OPERATOR Admitting Provider: Ronak Alcantar Attending physician on admission: Ronak Alcantar Condition: Stable
[2023-06-23 09:00] VITALS: BP 134/89; PULSE 84; RESP 16; TEMP 36.8; O2SAT 97
[2023-06-23] MEDS: MULTIVIT/MIN/PREN/FOL AC/IRON TABLET 1 TAB PO (09:17)
[2023-06-23] MEDS: POLYSACCHARIDE IRON COMPLEX 150 MG CAPSULE PO (09:17)
[2023-06-23] MEDS: IBUPROFEN 600 MG TABLET PO (09:17)
--- NOTE | 2023-06-23 09:46 | PC.NURSE ---
[id number] Purposefully rounded to assess needs. Mother is confident and voiced that the baby is latching better today. Mother is supplementing after with formula and is protecting the milk supply with pumping to achieve at minimum 8 stimulations in a 24 hour period. LC's name is on the communication board and mother voiced she would call for the next feeding.
--- NOTE | 2023-06-23 15:39 | PC.NURSE ---
1433 discharged to a no care bed.
--- NOTE | 2023-06-23 15:43 | PC.NURSE ---
1000 Patient viewed the discharge video Mother & Baby Care, The First Two Weeks . Patient was given the opportunity and encouraged to ask questions. Patient verbalized understanding of information shared and has been given the mother/baby guide for home reference.
[2023-06-25 11:32] VITALS: BP 134/91; PULSE 78; RESP 18; TEMP 36.9; O2SAT 100
== END 2023-06-23 14:33 | disposition home or self-care (01) | DRG 560 ==
LOC: ANHLDR 21:22 → ANHOB2 06-21 14:35 → ANHLDR 06-24 08:35 → ANHOB2 06-24 08:35
PROVIDERS: Admitting Provider Obstetrics & Gynecology; Visit Provider Student in an Organized Health Care Education/Training Program
DX: O69.81X0 Labor and delivery complicated by cord around neck, without compression, not applicable or unspecified (principal); O71.82 Other specified trauma to perineum and vulva; Z3A.36 36 weeks gestation of pregnancy; Z37.0 Single live birth
CPT/HCPCS: 36415; 80053; 84112; 84550; 85014; 85018; 85025; 86592; 86850; 86900; 86901; A9270; J0290; J2590; J2795; J3010; J7120

== ENCOUNTER 2023-10-14 10:42 | Outpatient (CLI) | payer OTHER, SELFPAY ==
[2023-10-14 10:59] LABS: Hematocrit 35.9 % (37.0-47.0); Hemoglobin 11.8 g/dL (12.0-15.0)
[2023-10-14 11:51] LABS: HIV 1/2 Ab P24 Ag Result Negative (Negative)
[2023-10-14 12:11] LABS: Hepatitis B Surface Antigen Negative (Negative)
[2023-10-14 12:17] LABS: HAV RESULT Negative (Negative); Hepatitis B Core IgM Result Negative (Negative)
[2023-10-14 12:28] LABS: Hepatitis C Virus Antibody Negative (Negative)
[2023-10-14 21:02] LABS: Rapid Plasma Reagin Non-Reactive (NonReactive)
== END 2023-10-14 10:43 | disposition home or self-care (01) ==
LOC: ANHLAB 10:44
PROVIDERS: Visit Provider Student in an Organized Health Care Education/Training Program
DX: Z11.3 Encounter for screening for infections with a predominantly sexual mode of transmission (principal); N94.89 Other specified conditions associated with female genital organs and menstrual cycle
CPT/HCPCS: 36415; 80074; 84702; 85014; 85018; 86592; 86695; 86696; 86703; G0432

== ENCOUNTER 2024-04-21 02:07 | Day surgery (SDC) | payer OTHER, SELFPAY ==
[2024-04-19 10:18] VITALS: BMI 40.2
--- NOTE | 2024-04-19 10:23 | PC.NURSE ---
Report to the Outpatient Waiting Room, entrance under the green pavilion located off [facility], at time _1130_ on date _[id number]_. Planned Procedure Time: _130pm_.? Time changes happen often and if your time is changed the preop area will call you the afternoon before. - You and your visitor will be asked to self-screen and do not enter if you have any COVID symptoms. Please call surgeon if you need to reschedule. - A mask is optional within the hospital at this time. Patients may have clear liquids (water, carbonated beverages, clear teas, apple juice) until 3 hours prior to surgery with a maximum of 20 ounces. - No food from midnight until time of surgery and no smoking Take only the following medications with a SIP of water on the morning of surgery: __None__ DO NOT STOP ANY OF YOUR OTHER PRESCRIPTION MEDICATIONS PRIOR TO SURGERY EXCEPT THE FOLLOWING Medications to discontinue per physician ___None___ Date to take last dose Please no make-up, nail portuguese, hairspray, perfume, deodorant, or body powder the day of surgery.? No jewelry (including any body piercings) or valuables the day of surgery, leave them at home.? Please take a shower or bath the night before, or the morning of, surgery with an antibacterial soap.? Wear comfortable, loose fitting clothing.? - Jewelry must be removed prior to entering the operating room.? Rings and piercings that are not removed may be cut off. - The hospital will not accept responsibility for valuables.? - Please leave all valuables, including medications, at home the day of surgery. If you are going home after surgery, a licensed explosives truck driver must drive you home.? - NO public transportation without another adult if you receive anesthesia. - We recommend that an adult stay with you for 24 hours following discharge. - We also recommend that you do not drive, make important decision, drink alcoholic beverages, or take any drugs that were not prescribed by your health care provider for at least 24 hours after your discharge time. Follow any additional instructions given to you from your surgeon. Telephone instructions given to __Taylor__and asked if any additional questions and then verbalized understanding. Patient advised to call surgeon office or pre surgery nurse liaison [phone] if any additional questions.
--- NOTE | 2024-04-21 08:03 | WPDHPUPDATE1 ---
History and Physical Update Update Date/Time: 04/21/24 08:03 History and Physical has been reviewed, including an updated exam of the patient. There are NO changes in the patient's condition. Risks, benefits, and alternatives have been discussed and questions answered. Patient agrees to proceed with suction D&C. Will give azithromycin 1g PO orally 1 hour before procedure.
[2024-04-21 11:32] VITALS: BP 105/78; PULSE 92; RESP 18; TEMP 36.4; O2SAT 98
[2024-04-21 11:46] VITALS: BMI 40.2
[2024-04-21] MEDS: LACTATED RINGERS 1,000 ML 30 ML IV CONT (11:55)
[2024-04-21] MEDS: ACETAMINOPHEN 500 MG TABLET 1000 MG PO (12:01)
[2024-04-21] MEDS: AZITHROMYCIN 250 MG TABLET 1000 MG PO (12:17)
--- NOTE | 2024-04-21 12:21 | P.PNAN_ITS ---
Anes - Initial Pre Proc Eval Procedure: Operation Date: 04/21/24 13:30 Proposed Procedures p Suction Dilation and Curettage - Geetha Springer MD Date/Time: 04/21/24 12:21 Surgeon: Geetha Springer MD Pre Op Diagnosis: Missed Ab Patient Data Age: 28 Gender: F Height: 1.63 m Weight: 106.4 kg Allergies Allergy/AdvReac Type Severity Reaction Status Date / Time No Known Allergies Allergy Verified 04/21/24 11:45 Home Medications Medication Instructions Recorded Confirmed Type No Home Medications 04/19/24 04/19/24 History Patient hx anesthesia problems: none Family hx anesthesia problems: none Results Review: All pre-operative results and documents have been reviewed as part of the pre- operative evaluation. [facility] Past Medical History Medical History (Updated 04/20/24 @ 15:56 by Fabian Gallego DO) Collapse, lung Encounter for screening examination for sexually transmitted disease Migraine Suppression of menses Surgical History Surgical History Hx of cholecystectomy Family History Family History Grandparent Lung cancer Social History Social History Smoking packs per day: 1 Smoking cigarettes per day: 20.0 Years smoked: 13 Smoking pack-years: 13.00 Smoking status: Current every day smoker Tobacco type: cigarettes Second hand tobacco smoke exposure: Yes Alcohol intake: former Substance use: never Do You Feel Safe in your Home?: Yes Lack of Transportation: No Lack of Food: Never True Current Housing: I Have Housing Concerned About Future Housing: No Difficulty Paying Gas/Electric Bills: No Difficulty Paying for Meds: No Currently Unemployed: No Education: High School Diploma/GED Difficulty w/ Childcare or Family Care: No Living arrangements: with family Additional living arrangements comments: spouse and child Occupation/Education: unemployed Gender identity (if verbalized by the patient): Female Sexual Orientation (if Verbalized by the Patient): Straight or Heterosexual Spiritual care concerns: No Anes - Eval Final PreProcedure Day of Procedure 04/21/24 12:21 Patient weight: morbidly obese Heart: regular rate and rhythm Lungs: clear to auscultation Airway: Mallampati scale class II Neurological: alert and oriented Last oral intake: >/= 8 hours ASA classification: III Emergent: no Anesthetic plan: proceed Anesthesia type and monitoring: general GIVS and standard monitoring Results Review: All pre-operative results and documents have been reviewed as part of the pre- operative evaluation. Informed Consent: The patient's anesthetic plan and its attendant risks and benefits were discussed with the patient/family/POA. Questions were solicited and answers provided to the satisfaction of the patient/family/POA.
[2024-04-21] MEDS: fentaNYL CITRATE INJ (*CRX) 100 MCG/2 ML VIAL 25 MCG IV PUSH (13:13)
[2024-04-21 14:08] VITALS: BP 103/62; PULSE 80; RESP 20; O2SAT 97
--- NOTE | 2024-04-21 14:25 | W.PM.PROC2 ---
Procedure Note - Detailed Date of Procedure 04/21/24 Pre-op Diagnosis Missed Ab Recurrent loss Post-op Diagnosis Same Procedure Performed Suction D&C under ultrasound guidance Surgeon Geetha Springer MD Anesthesia MAC Findings Large clot was in the cervix; removed. Cervix dialed 1-2cm. Uterus sounded to 12cm; a significant amount of tissue was removed. Good hemostasis at end of case. Products of conception/blood = 200cc. Description of Procedure Jenny was taken to the operating room where she was placed under sedation without complications. She was then prepped and draped in the usual sterile fashion in the dorsal lithotomy position with her legs in low Carson stirrups. A time-out was performed and she received azithromycin 1000mg pre-operatively. A bivalve speculum was placed within the vagina where the cervix was easily identified. The anterior lip of the cervix was grasped with a single-tooth tenaculum and the uterus was gently sounded. The cervix was then serially dilated. A 8mm suction curettage was then gently placed within the uterine cavity until the fundus was reached. The suction was then applied and multiple passes were made and a significant amount of tissue was removed with each pass. A bedside US was performed and additional products were noted. I then switched to a 10mm suction curettage and 2 additional passes were made. A bedside US was then performed again and no additional products were noted and a thin stripe was seen. The cervix was noted to have clamped down with minimal bleeding. All instruments were removed from the vagina and I performed a bimanual massage. Good uterine tone and good hemostasis was then noted. Sponge, lap, instrument, and needle counts were correct at the end of the procedure. Patient was awoken from anesthesia and taken to recovery with plans of same-day discharge home. The products of conception will be sent for genetic testing. Estimated Blood Loss 200 (including products of conception) IV Fluids 700 Pathology Yes (products of conception) Complications No immediate complications Condition Stable Disposition Same day [facility] Billing Surgery - Charge Forward: Surgery Billing
[2024-04-21 14:35] VITALS: BP 108/67; PULSE 74; RESP 18; O2SAT 99
== END 2024-04-21 14:48 | disposition home or self-care (01) ==
PROVIDERS: Visit Provider Obstetrics & Gynecology
PROC: (CPT 59820; principal; 2024-04-21 13:30)
DX: O02.1 Missed abortion (principal); E28.2 Polycystic ovarian syndrome; J98.19 Other pulmonary collapse; F17.210 Nicotine dependence, cigarettes, uncomplicated; Z98.890 Other specified postprocedural states; Z90.49 Acquired absence of other specified parts of digestive tract; Z80.1 Family history of malignant neoplasm of trachea, bronchus and lung
CPT/HCPCS: 59820; 88264; 88305; A9270; J1100; J2003; J2250; J2405; J2704; J3010; J7120

== ENCOUNTER 2024-06-01 15:59 | Outpatient (CLI) | payer OTHER, SELFPAY ==
[2024-06-01 17:37] LABS: Carcinoembryonic Antigen 1.9 ng/mL (0.0-3.0)
[2024-06-02 10:24] LABS: CA-125 9 U/mL (<35)
[2024-06-02 14:48] LABS: CA 19-9 25 U/mL (<34)
[2024-06-05 08:29] LABS: Alpha Fetoprotein Tumor Marker 1.6 ng/mL
== END 2024-06-01 16:00 | disposition home or self-care (01) ==
LOC: ANHLAB 16:00
PROVIDERS: Visit Provider Obstetrics & Gynecology
DX: N96 Recurrent pregnancy loss (principal); N83.202 Unspecified ovarian cyst, left side
CPT/HCPCS: 36415; 82105; 82378; 83520; 86146; 86147; 86301; 86304; 86336

== ENCOUNTER 2024-06-02 13:47 | Outpatient (CLI) | payer OTHER, SELFPAY ==
[2024-06-05 20:18] LABS: Lupus dRVVT Screen 33 sec (< OR = 45); PTT-LA Screen 39 sec (< OR = 40)
== END 2024-06-02 13:48 | disposition home or self-care (01) ==
LOC: ANHLAB 13:49
PROVIDERS: Visit Provider Obstetrics & Gynecology
DX: N96 Recurrent pregnancy loss (principal)
CPT/HCPCS: 36415; 85613; 85730

== ENCOUNTER 2024-07-03 01:21 | Day surgery (SDC) | payer OTHER, SELFPAY ==
--- NOTE | 2024-06-21 16:15 | SUR.PREOP ---
Report to the Outpatient Waiting Room, entrance under the green pavilion located off [facility], at time 0930 on date 07/03/24. Planned Procedure Time: 1130.? Time changes happen often and if your time is changed the preop area will call you the afternoon before. - You and your visitor will be asked to self-screen and do not enter if you have any COVID symptoms. Please call surgeon if you need to reschedule. - A mask is optional within the hospital at this time. Patients may have clear liquids (water, carbonated beverages, clear teas, apple juice) until 3 hours prior to surgery with a maximum of 20 ounces. - No food from midnight until time of surgery and no smoking. This includes no chewing gum, candy or mints. - Infants may have breast milk until 4 hours before surgery, formula 6 hours prior to surgery. - Children will be allowed to drink immediately following surgery.? If applicable, please bring a bottle or sippy cup to assist with drinking. Juice, water, soda, and popsicles are readily available.? For infants on formula, please bring formula the day of surgery.? Pacifiers are allowed. Take only the following medications with a SIP of water on the morning of surgery: BIRTH CONTROL DO NOT STOP ANY OF YOUR OTHER PRESCRIPTION MEDICATIONS PRIOR TO SURGERY EXCEPT THE FOLLOWING Medications to discontinue per physician N/A Date to take last dose Please no make-up, nail zimbabwean, hairspray, perfume, deodorant, or body powder the day of surgery.? No jewelry (including any body piercings) or valuables the day of surgery, leave them at home.? Please take a shower or bath the night before, or the morning of, surgery with an antibacterial soap.? Wear comfortable, loose fitting clothing.? Children are encouraged to wear pajamas. - Jewelry must be removed prior to entering the operating room.? Rings and piercings that are not removed may be cut off. - The hospital will not accept responsibility for valuables.? - Please leave all valuables, including medications, at home the day of surgery. If you are going home after surgery, a licensed courier driver must drive you home.? - NO public transportation without another adult if you receive anesthesia. - We recommend that an adult stay with you for 24 hours following discharge. - We also recommend that you do not drive, make important decision, drink alcoholic beverages, or take any drugs that were not prescribed by your health care provider for at least 24 hours after your discharge time. For Pediatric surgeries, we recommend two adults accompany the child home. Follow any additional instructions given to you from your surgeon. Telephone instructions given to NILS HAMEED and asked if any additional questions and then verbalized understanding. Patient advised to call surgeon office or pre surgery nurse liaison [phone] if any additional questions.
[2024-06-21 16:30] VITALS: BMI 40.2
--- NOTE | 2024-07-01 09:15 | P.HP_ITS ---
H&P: HPI History of Present Illness Date/Time: 07/01/24 09:15 Chief Complaint: pelvic pain Narrative: Jenny is a 29yo [id number], who presents for surgical management of ovarian cyst. She reports she had some LLQ pain, nothing severe, but it comes and goes. This ovarian cyst has been present since when she was with her son; 04/2023 it was measuring ~ 7.5cm. [employer] US 05/2024 showed the cyst has increased to ~9cm with septations and increased blood flow. Tumor markers were negative. Review of Systems Constitutional: Constitutional: Denies chills, Denies fever(s) and Denies headache(s) Eyes: Eyes: Denies change in vision ENT: Denies dizziness and Denies headache(s) Cardiovascular: Cardiovascular: Denies chest pain and Denies dyspnea Respiratory: Respiratory: Denies cough and Denies dyspnea Gastrointestinal: Gastrointestinal: Denies abdominal pain and Denies change in stool character Genitourinary: Genitourinary: Denies abnormal menses, Reports pelvic pain, Denies vaginal discharge, Denies vaginal odor and Denies vaginal pruritus Neurologic: Denies dizziness and Denies headache(s) Psychiatric: Psychiatric: Denies anxiety and Denies depression PMFSH Past Medical History Medical History Collapse, lung Encounter for screening examination for sexually transmitted disease Migraine Suppression of menses Surgical History Surgical History H/O dilation and curettage 04/21/2024 Hx of cholecystectomy Family History Family History Grandparent Lung cancer Social History Social History (Updated 05/03/24 @ 16:37 by Robbie Massey MA) Smoking packs per day: 1 Smoking cigarettes per day: 20.0 Years smoked: 15 Smoking pack-years: 15.00 Smoking status: Current every day smoker Tobacco type: cigarettes Second hand tobacco smoke exposure: Yes Alcohol intake: current Substance use: never Substance use type: does not use Do You Feel Safe in your Home?: Yes Lack of Transportation: No Lack of Food: Never True Current Housing: I Have Housing Concerned About Future Housing: No Difficulty Paying Gas/Electric Bills: No Difficulty Paying for Meds: No Currently Unemployed: No Education: High School Diploma/GED Difficulty w/ Childcare or Family Care: No Living arrangements: with family Occupation/Education: other Additional occupation/education comments: homemaker Gender identity (if verbalized by the patient): Female Sexual Orientation (if Verbalized by the Patient): Straight or Heterosexual Spiritual care concerns: No Meds Home Medications and Allergies Home Medications ?Medication ?Instructions ?Recorded ?Confirmed ?Type norethindrone (contraceptive) 0.35 0.35 mg PO DAILY #84 tabs 05/09/24 06/21/24 Rx mg tablet ibuprofen 800 mg tablet 800 mg PO TID PRN pain 06/21/24 06/21/24 History Allergies Allergy/AdvReac Type Severity Reaction Status Date / Time No Known Allergies Allergy Verified 06/21/24 16:32 Exam Const: General: cooperative, comfortable, no acute distress and obese Nutritional Appearance: obese Orientation/consciousness: patient oriented x3 Resp: Effort & Inspection: normal respiratory effort Cardio: Rate: regular rate GI: Inspection: normal to inspection GI Palp: No abdominal tenderness and Yes Soft to palpation : Other: deferred to OR Skin: General skin exam: normal color Neuro: General: patient oriented x3 Extrem: General: normal to inspection Psych: Appearance: grossly normal Affect: normal affect Attitude: cooperative Assessment and Plan Assessment and plan (1) Left ovarian cyst: Code(s): N83.202 - Unspecified ovarian cyst, left side Status: Acute Plan - Ovarian cyst that has been present for >1 yr and slowly increased in size - Tumor markers negative - She has had intermittent pelvic pain - Proceed with robotic assisted left ovarian cystectomy - Risks and benefits discussed in detail
[2024-07-03] VITALS (8 sets, daily range): BP systolic 81–146; BP diastolic 55–86; PULSE 71–92; RESP 15–19; TEMP 36.2–36.7; O2SAT 96–100
--- NOTE | 2024-07-03 07:12 | WPDHPUPDATE1 ---
History and Physical Update Update Date/Time: 07/03/24 07:12 History and Physical has been reviewed, including an updated exam of the patient. There are NO changes in the patient's condition. Risks, benefits, and alternatives have been discussed and questions answered. Patient agrees to proceed with robotic assisted left ovarian cystectomy.
[2024-07-03] MEDS: ACETAMINOPHEN 500 MG TABLET 1000 MG PO (11:48)
[2024-07-03] MEDS: KETOROLAC 15 MG/ML VIAL (*BKC) IV PUSH (11:48)
--- NOTE | 2024-07-03 13:14 | P.PNAN_ITS ---
Anes - Initial Pre Proc Eval Procedure: Operation Date: 07/03/24 12:30 Proposed Procedures p Robotic Assisted Left Ovarian Cystectomy - Geetha Springer MD Date/Time: 07/03/24 13:14 Surgeon: Geetha Springer MD Pre Op Diagnosis: Left Ovarian cyst Patient Data Age: 29 Gender: F Height: 1.63 m Weight: 109.5 kg Last Vital Signs Temp 36.7 C 07/03/24 11:00 Pulse 85 07/03/24 11:00 Resp 16 07/03/24 11:00 BP 146/82 H 07/03/24 11:00 Pulse Ox 98 07/03/24 11:00 O2 Del Method Room Air 07/03/24 11:00 Allergies Allergy/AdvReac Type Severity Reaction Status Date / Time No Known Allergies Allergy Verified 07/03/24 11:25 Home Medications ?Medication ?Instructions ?Recorded ?Confirmed ?Type norethindrone (contraceptive) 0.35 0.35 mg PO DAILY #84 tabs 05/09/24 07/03/24 Rx mg tablet ibuprofen 800 mg tablet 800 mg PO TID PRN pain 06/21/24 06/21/24 History Laboratory Tests 07/03/24 10:55 Blood Type O Positive Antibody Screen Negative Patient hx anesthesia problems: other (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 [facility] Past Medical History Medical History (Updated 07/03/24 @ 12:55 by Fabian Gallego DO) Chronic post-traumatic stress disorder (PTSD) Migraine Encounter for screening examination for sexually transmitted disease Collapse, lung Suppression of menses Surgical History Surgical History H/O dilation and curettage 04/21/2024 Hx of cholecystectomy Family History Family History Grandparent Lung cancer Social History Social History (Updated 05/03/24 @ 16:37 by Robbie Massey MA) Smoking packs per day: 1 Smoking cigarettes per day: 20.0 Years smoked: 15 Smoking pack-years: 15.00 Smoking status: Current every day smoker Tobacco type: cigarettes Second hand tobacco smoke exposure: Yes Alcohol intake: current Substance use: never Substance use type: does not use Do You Feel Safe in your Home?: Yes Lack of Transportation: No Lack of Food: Never True Current Housing: I Have Housing Concerned About Future Housing: No Difficulty Paying Gas/Electric Bills: No Difficulty Paying for Meds: No Currently Unemployed: No Education: High School Diploma/GED Difficulty w/ Childcare or Family Care: No Living arrangements: with family Occupation/Education: other Additional occupation/education comments: homemaker Gender identity (if verbalized by the patient): Female Sexual Orientation (if Verbalized by the Patient): Straight or Heterosexual Spiritual care concerns: No Anes - Eval Final PreProcedure Day of Procedure 07/03/24 13:14 Patient weight: morbidly obese Heart: regular rate and rhythm Lungs: clear to auscultation Airway: Mallampati scale class III Neurological: alert and oriented Last oral intake: >/= 8 hours ASA classification: III Emergent: no Anesthetic plan: proceed Anesthesia type and monitoring: general ETT and standard monitoring Results Review: All pre-operative results and documents have been reviewed as part of the pre- operative evaluation. Informed Consent: The patient's anesthetic plan and its attendant risks and benefits were discussed with the patient/family/POA. Questions were solicited and answers provided to the satisfaction of the patient/family/POA.
[2024-07-03 13:59] LABS: BEDSIDEPREGUCG Negative (Negative)
[2024-07-03] MEDS: BUPIVACAINE/EPINEPHRINE 0.5% 50 ML VIAL 30 ML INFILTRATE (14:26)
--- NOTE | 2024-07-03 14:49 | SUR.OPER ---
specimens given to nica rojo. received in lab by ralf at [id number]
[2024-07-03] MEDS: LACTATED RINGERS 1,000 ML 30 ML IV CONT ×2 (16:12→16:13)
--- NOTE | 2024-07-03 16:12 | P.OP_ITS ---
Procedure Note - Detailed Date of Procedure 07/03/24 Pre-op Diagnosis Left Ovarian cyst Post-op Diagnosis Same Procedure Performed Robotic assisted left ovarian cystectomy Surgeon Geetha Springer MD Anesthesia General and Local (30cc of 0.5% marcaine w/ epi) Findings Normal uterus and bilateral fallopian tubes. Left ovary with 10cm cyst, ruptured intra-operatively; 300cc of clear fluid collected. Surgicel powder was used at the end of the case; good hemostasis was noted. Description of Procedure Jenny was taken to the operating room where she was placed under general anesthesia without issues. No antibiotics were indicated. She was then prepped and draped in the usual sterile fashion in the dorsal lithotomy position with her legs in low Carson stirrups, her arms tucked at her side, with a strap over her chest. A time-out was performed. My attention was turned down below where a Duron catheter was placed. A bivalve speculum was placed within the vagina. The cervix was easily identified and the anterior lip of the cervix was grasped with single-tooth tenaculum. A uterine manipulator was placed w/o issue. My gloves were changed and attention was then turned to the abdomen. A 5 mm trocar was placed under direct visualization at Jimenez's point without issue. Once intra-abdominal placement was confirmed, the abdomen was insufflated with carbon dioxide gas. An abdominal survey was performed and the above findings were noted. Two additional ports were placed on the right and left side and the camera port was placed supraumbilical under direct visualization without issues. The 5mm port was switched out for the accessory port under direct visualization. The patient was then placed in deep Trendelenburg, with the legs slightly lowered. The robot was then docked. The instruments were placed intra- abdominally under direct visualization. I then un-scrubbed and went to the robotic console. The ovaries, cyst, and uterus were sprayed with normal saline and the fluid was then collected for pelvic washings. Using the monopolar scisso rs, an incision was made in the cyst wall and immediately clear fluid was noted. A sample of the cyst fluid was collected to send to pathology; the remaining cyst fluid was suctioned out of the cyst (300cc in total was removed). The cyst wall was grasped using Maryland graspers and the ovarian tissue was grasped with the prograsper. With traction, counter traction, the cyst wall was slowly removed. The cyst wall was quite thin and would easily tear. Small portions were removed until no plane was easily identified and I would then start on a new area. The cyst was ultimately detached from it's attachment and that portion of the cyst was placed in front of the uterus. Bleeders were then coagulated using the tips of the Maryland grasper. The remaining portion of the cyst wall was identified and once again, using the two separate graspers, the cyst wall was slowly removed from the base. The bleeders were once again coagulated carefully for good hemostasis. The pelvis was irrigated multiple times and suctioned free of all fluid and blood. The stretched ovarian tissue was opened up and Surgicel powder was placed within the remaining tissue. A laparoscopic bag was then placed within the abdomen and all parts of the cyst sac was placed within the bag. The bag was closed and brought up through the accessory port. The left ovary was once again examined and good hemostasis was noted. All instruments were removed from the abdomen and the robot was undocked. I then scrubbed back in. The laparoscopic bag containing the ovarian cyst wall was brought up through the accessory port and the port was removed and the bag string was cut. Using Margoth clamps, the edge of the bag was grasped. The cyst wall was grasped using a Nelda clamp and removed from the bag. The bag was then removed from the abdomen. The insufflation was released and the trocars were removed. The 4 laparoscopic incision sites were reapproximated using 4-0 Monocryl and covered with Dermabond. The incisions were then infiltrated using 0.5% Marcaine with epinephrine. The uterine manipulator and Duron catheter were removed. Sponge, lap, instrument, and needle counts were correct at the end of the procedure. Patient was awoken from general anesthesia and taken to recovery with plans of same-day discharge home. Estimated Blood Loss 150 IV Fluids 1,500 Urine Output 75 Packing No Pathology Yes (pelvic washings, cyst fluid, left ovarian cyst) Complications No immediate complications Condition Stable Disposition Same day [facility] Billing Surgery - Charge Forward: Surgery Billing
[2024-07-03] MEDS: fentaNYL CITRATE INJ (*CRX) 100 MCG/2 ML VIAL 25 MCG IV PUSH ×3 (16:35→17:21)
[2024-07-03] MEDS: oxyCODONE HCL (*CRX) 5 MG TAB IR PO (17:21)
== END 2024-07-03 18:00 | disposition home or self-care (01) ==
PROVIDERS: Anesthesiology; Visit Provider Obstetrics & Gynecology
PROC: 8E0W4CZ Robotic Assisted Procedure of Trunk Region, Percutaneous Endoscopic Approach (ICD-10-PCS; CPT 49320; principal; 2024-07-03 12:30)
DX: D27.1 Benign neoplasm of left ovary (principal); F43.10 Post-traumatic stress disorder, unspecified; F17.210 Nicotine dependence, cigarettes, uncomplicated; E66.01 Morbid (severe) obesity due to excess calories; Z68.41 Body mass index [BMI] 40.0-44.9, adult; Z79.1 Long term (current) use of non-steroidal anti-inflammatories (NSAID); Z98.890 Other specified postprocedural states; Z90.49 Acquired absence of other specified parts of digestive tract; Z80.1 Family history of malignant neoplasm of trachea, bronchus and lung
CPT/HCPCS: 58662; S2900; 36415; 86850; 86900; 86901; 88108; 88305; A9270; J1100; J1885; J2003; J2250; J2405; J2704; J3010; J7030; J7120

== ENCOUNTER 2024-07-24 09:42 | Outpatient (CLI) | payer OTHER, SELFPAY ==
[2024-07-24 10:21] LABS: Basophils Percent Auto 0.4 % (0.2-1.2); Eosinophils Absolute Auto 0.2 K/mm3 (0-0.3); Eosinophils Percent Auto 1.4 % (0-4.4); Hematocrit 40.2 % (37.0-47.0); Hemoglobin 13.5 g/dL (12.0-15.0); Immature Granulocyte Absolute 0.03 K/mm3 (0.00-0.031); Immature Granulocyte Percent A 0.3 % (0-0.5); Lymphocytes Absolute Auto 3.54 K/mm3 (0.9-3.2); Lymphocytes Percent Auto 31.5 % (18.3-44.2); Mean Corpuscular HGB Conc 33.6 g/dl (32-36); Mean Corpuscular Hemoglobin 29.7 pg (26-34); Mean Corpuscular Volume 88.5 fl (80-100); Mean Platelet Volume 9.6 fl (7.4-10.4); Monocytes Absolute Auto 0.6 K/mm3 (0.1-0.6); Monocytes Percent Auto 5.6 % (2.6-8.5); Neutrophils Absolute Auto 6.8 K/mm3 (1.3-6.7); Neutrophils Percent Auto 60.8 % (45.5-73.1); Platelet Count Result 353 k/mm3 (150-375); Red Blood Count 4.54 M/mm3 (4.2-5.4); Red Cell Distribution Width 12.6 % (11.5-14.5); White Blood Count 11.2 K/mm3 (4.5-10.0)
--- OUTSIDE RECORDS SUMMARY | 2024-07-24 10:22 | XMS_ITS | Patient Health Summary ---
Author Organization [facility] [place] Address [address] [place] [address] Care Team Providers Care Shift Coordinator Name Role Phone Steff Reyes MD Primary Care Provider [phone] Note from [facility],non-owned Affiliates and Associated Physician Practices is amultiple site organization consisting of ambulatory clinics and hospital sitesin [place], [place], [place] and [place]. This disclosure is being madepursuant to the Care Everywhere program and may not contain all information available regarding this patient. Last updated 18.[facility] Allergies No known active allergies Medications * Be aware that medications may not be up to date on this document. Alwaysverify current medications with the patient. * acetaminophen (TYLENOL) 325 MG tablet(Started 05/06/2010) Take 1-2 Tabs by mouth every 4 hours as needed for Fever and Pain. Maximum allowable Acetaminophen amount = 4 Grams / 24 hours. * hydrocodone-acetaminophen (VICODIN) 5-500 MG tablet(Started 05/06/2010) Take 1-2 Tabs by mouth every 6 hours as needed for Pain. * methylPREDNISolone (MEDROL DOSEPAK) 4 MG tablet(Started 05/20/2010) Take by mouth as directed. * fluticasone hfa 110 (FLOVENT HFA 110) 110 MCG/ACT inhaler(Started 05/27/2010) Inhale by mouth daily. Use once a day with the aerochamber starting one week after surgery. You will continue on this dose until otherwise directed at follow up. 3 refills left * fluticasone hfa 110 (FLOVENT HFA 110) 110 MCG/ACT inhaler(Started 05/20/2010) Inhale by mouth 2 times daily. Use twice daily for one more week. Use with aerochamber. * aspirin EC (Ecotrin) 81 MG tablet Take 1 (one) tablet by mouth once daily * ondansetron (Zofran) 4 MG tablet Take 1 (one) tablet by mouth every 6 hours as needed for Nausea/Vomiting Reasons: Nausea and Vomiting in Active Problems Problem Noted Date Diagnosed Date BMI 34.0-34.9,adult 04/21/2023 Stridor 03/28/2010 Resolved Problems Problem Noted Date Diagnosed Date Resolved Date Encounter for feeding tube placement 02/13/2010 05/20/2010 Social History Tobacco Use Types Packs/Day Years Used Date Smoking Tobacco: Every Day Cigarettes Passive Smoke Exposure: Yes Smokeless Tobacco: Never Tobacco Cessation:Ready to Q uit: Not Asked; Counseling Given: Not Answered Alcohol Use Standard Drinks/Week Comments No 0 (1 standard drink = 0.6 oz pur e alcohol) Sex and Gender Information Value Date Recorded Sex Assigned at Not on file Gender Identity Not on file Sexual Orientation Not on file Last Filed Vital Signs Vital Sign Reading Time Taken Comments Blood Pressure 131/79 06/18/2023 11:20 AM ENGINEER STE[employer] Pulse 88 06/18/2023 11:20 AM [employer] Temperature 36.4 C (97.6 F) 05/20/2010 1:25 PM [employer] Respiratory Rate 16 05/20/2010 2:00 PM [employer] Oxygen Saturation 99% 06/18/2023 11:20 AM [employer] Inhaled Oxygen Concentration 100% 02/18/2010 6 :00 PM CDT Weight 92.2 kg (203 lb 4.8 oz) 03/31/2023 10:03 AM CDT Height 162.6 cm (5' 4 ) 03/31/2023 10:03 AM CDT Body Mass Index 34.9 03/31/2023 10:03 AM CDT Procedures * BIOPHYSICAL PROFILE W NST(Performed 06/18/2023) Performed for Obesity, Class II, BMI 35-39.9, History of pre-eclampsia, Encounter for ultrasound toassess growth (HCC), 34 weeks gestation of (HCC), BMI 34.0-34.9,adult * SONOGRAM - COMPLETE(Performed 05/21/2023) Performed for Encounter for follow-up ultrasound of anatomy (HCC) * SONOGRAM - COMPLETE(Performed 04/27/2023) Performed for Encounter for follow-up ultrasound of anatomy (HCC) * SONOGRAM - COMPLETE(Performed 03/31/2023) Performed for Abnormal finding on ultrasound, Vanishing twin syndrome (HCC), History of pre-eclampsia * HCG URINE QUALITATIVE - POINT OF CARE(Performed 05/20/2010) * HCG URINE QUALITATIVE - POINT OF CARE(Performed 05/06/2010) * HCG URINE QUALITATIVE - POINT OF CARE(Performed 04/08/2010) * HCG URINE QUALITATIVE - POINT OF CARE(Performed 04/02/2010) * HCG URINE QUALITATIVE - POINT OF CARE(Performed 03/19/2010) * HCG URINE QUALITATIVE(Performed 03/14/2010) * DRUG SCREEN URINE ABUSE INHOUSE(Performed 03/14/2010) * BLOOD GASES CAPILLARY(Performed 03/14/2010) * XR CHEST 1VW(Performed 03/14/2010) Performed for Painful respiration * XR AIRWAY LAT(Performed 03/14/2010) Performed for Painful respiration * DIFFERENTIAL MANUAL(Performed 03/14/2010) * COMPREHENSIVE METABOLIC PANEL(Performed 03/14/2010) * CBC W AUTO DIFFERENTIAL(Performed 03/14/2010) * XR NECK SOFT TISSUE(Performed 03/04/2010) Performed for Respiratory Distress * XR CHEST 2VW(Performed 03/04/2010) Performed for Respiratory Distress * LAB RESULTS ORDER(Performed 02/21/2010) * CARDIAC RHYTHM STRIP ORDER(Performed 02/21/2010) * CARDIAC EKG ORDER(Performed 02/21/2010) * XR CHEST 1VW(Performed 02/18/2010) Performed for Pneumothorax * XR CHEST 1VW(Performed 02/18/2010) Performed for Hypoxia * BLOOD GASES CAP + COOX PANEL(Performed 02/17/2010) * LYTES (NA K CL CO2) BLOOD(Performed 02/17/2010) * XR CHEST 1VW(Performed 02/17/2010) Performed for Hypoxia * XR CHEST 1VW(Performed 02/16/2010) Performed for Hypoxia, Pneumothorax * XR CHEST 1VW(Performed 02/16/2010) Performed for Hypoxia * LYTES (NA K CL CO2) BLOOD(Performed 02/16/2010) * LYTES (NA K CL CO2) BLOOD(Performed 02/15/2010) * XR CHEST 1VW(Performed 02/15/2010) Performed for Mechanically Assisted Ventilation * BASIC METABOLIC PANEL (CALCIUM TOTAL)(Performed 02/15/2010) * XR CHEST 1VW(Performed 02/14/2010) Performed for Mechanically Assisted Ventilation * BASIC METABOLIC PANEL (CALCIUM TOTAL)(Performed 02/14/2010) * BLOOD GASES CAP + LYTES GLUC CA+ PANEL(Performed 02/13/2010) * DIFFERENTIAL MANUAL(Performed 02/13/2010) * CBC W AUTO DIFFERENTIAL(Performed 02/13/2010) * CULTURE BLOOD(Performed 02/13/2010) * CULTURE URINE+GRAM STAIN(Performed 02/13/2010) * XR ABDOMEN KUB(Performed 02/13/2010) Performed for Encounter for Feeding Tube Placement * BLOOD GASES CAP + COOX PANEL(Performed 02/13/2010) * XR CHEST 1VW(Performed 02/13/2010) Performed for Overdose Of Drug * XR CHEST 1VW(Performed 02/13/2010) Performed for Overdose Of Drug * BASIC METABOLIC PANEL (CALCIUM TOTAL)(Performed 02/13/2010) * BLOOD GASES CAP + COOX PANEL(Performed 02/13/2010) * XR CHEST 1VW(Performed 02/12/2010) Performed for Mechanically Assisted Ventilation * DIFFERENTIAL MANUAL(Performed 02/12/2010) * BLOOD GASES CAP + COOX PANEL(Performed 02/12/2010) * CBC W AUTO DIFFERENTIAL(Performed 02/12/2010) * COMPREHENSIVE METABOLIC PANEL(Performed 02/12/2010) * BLOOD GASES CAP + COOX PANEL(Performed 02/11/2010) * BLOOD GASES CAP + COOX PANEL(Performed 02/11/2010) * XR CHEST 1VW(Performed 02/11/2010) Performed for Hypoxia * HGB HCT PANEL(Performed 02/10/2010) * COMPREHENSIVE METABOLIC PANEL(Performed 02/10/2010) * XR CHEST 1VW(Performed 02/10/2010) Performed for Mechanically Assisted Ventilation * CULTURE RESPIRATORY(Performed 02/10/2010) * BLOOD GASES CAP + LYTES GLUC CA+ PANEL(Performed 02/10/2010) * PT PTT PANEL(Performed 02/10/2010) * BLOOD GASES CAP + COOX PANEL(Performed 02/10/2010) * COMPREHENSIVE METABOLIC PANEL(Performed 02/10/2010) * CBC W MANUAL DIFFERENTIAL(Performed 02/10/2010) * HCG URINE QUALITATIVE(Performed 02/10/2010) * XR CHEST 1VW(Performed 02/10/2010) Performed for Overdose Of Drug, Mechanically Assisted Ventilation * BLOOD GASES CAP + LYTES GLUC CA+ PANEL(Performed 02/10/2010) * CULTURE MRSA(Performed 02/10/2010) * BLOOD GASES CAPILLARY(Performed 02/10/2010) * XR CHEST 1VW(Performed 02/10/2010) Performed for Overdose Of Drug * BLOOD GASES CAPILLARY(Performed 02/10/2010) * BASIC METABOLIC PANEL (CALCIUM TOTAL)(Performed 02/10/2010) * EKG 12-LEAD(Performed 02/10/2010) Results * BIOPHYSICAL PROFILE W NST (06/18/2023 10:41 AM ENGINEER STEAM) Anatomical Region Laterality Modality Other 06/18/2023 10:4 1 AM [employer] STE[employer] Narrative 06/18/2023 12:10 PM ENGINEER [employer] [facility] PHONE: FAX: Pat. Name: NILS ANDERSON Pat. 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 Low-risk cf-DNA growth LGA MEASUREMENTS & AGE GROWTH EVALUATION Measurement GA Range Srce %for GA Ratios ----- ---- ------- BPD 9.1 cm 36w5d (20j7n-50z0a) Hadl BPD 83% FL/BPD 0.77 (0.71 - 0.87) HC 34.5 cm 40w0d (85k7q-16w6e) Hadl HC 97% FL/AC 0.21 (0.20 - 0.24) AC 33.2 cm 37w1d (30m5v-19z0v) Hadl AC 90% HC/AC 1.04 (0.93 - 1.12) FL 7.0 cm 35w6d (10q1e-00y8t) Hadl FL 48% CI 0.73 (0.70 - 0.86) HL 6.3 cm 36w4d (25k4b-67q4q) Memo HL 63% GA for sonogram 37w0d (73k0k-71m4q) Weight Estimate: based on (BPD,HC,AC,FL) Hadlock Weight: 3111 gm (2657-3565gm) Had : 6lbs, 13oz Normal: 2751 gm (2063-3438gm) Had Wt% 84% for 35w5d Heart Rate: 132 bpm Amniotic Fluid Index: 18.5cm (07.8-24.9) Q1: 4.9cm Q2: 4.7cm Q3: 5.0cm Q4: 4.0cm Biophysical Profile: 03/23 Breathin Tone: 2 NST: 2 Movement: 2 AFV: 2 PROCEDURE, TECHNIQUE Technique: transabdominal EVAL, PLACENTA Presentation: cephalic Placenta: right lateral Heart Rate: 132 bpm Amniotic Fluid Volume: normal CLINICAL SUMMARY A single fetus is seen in cephalic presentation. The measurements today are consistent with overall normal range, with AC at the 90th%. The VIPIN is based on prior ultrasound. There are no malformations noted with the limited survey. The amniotic fluid volume is within normal limits. The FHR baseline was 130 bpm during today's reactive NST. The FHR variability was moderate. IMPRESSION: Single, live, intrauterine at 35w5d size is overall normal range, with AC at the 90th% Amniotic fluid volume: within normal limits Biophysical profile: Reassuring RECOMMEND: Continue weekly testing Thank you for allowing us the opportunity to care for your patient. Anum Rhoades MD <Electronic Signature> 06/18/2023 12:11pm Ronak Alcantar MD [facility] ORDERABLES * SONOGRAM - COMPLETE (05/21/2023 9:44 AM ENGINEER STEAM) Only the most recent of3 resultswithin the time period is included. Anatomical Region Laterality Modality Other 05/21/2023 9:44 AM ENGINEER STE[employer] Narrative 05/21/2023 10:18 AM ENGINEER STEAM [facility] PHONE: FAX: Pat. Name: NILS ANDERSON Pat. No: [id number] Study Date: 05/21/2023 9:44am , Age: 01 1995, 27 Pregnancies: 2, Para 0101 Height: 64 in Weight: 219 lb LMP: Unknown GA by Base: 31w5d VIPIN: 07/18/2023 GA by US: 33w5d VIPIN: 07/04/2023 GA Selected: 31w5d (From [facility]) VIPIN: 07/18/2023 Referring MD: Geetha Springer MD [employer] Room Operator: Desire Hendrickson RDMS CPT4: 33127 BMI: 37.59 Hist/Ind: G1: 36 wk 2438 gm preeclampsia G2: Incomplete anatomic survey Class II obesity, Tobacco use Vanishing twin syndrome (VTS) Left adnexal cyst Low-risk cf-DNA growth LGA MEASUREMENTS & AGE GROWTH EVALUATION Measurement GA Range Srce %for GA Ratios ----- ---- ------- BPD 8.5 cm 34w1d (09o7r-91a6d) Hadl BPD 95% FL/BPD 0.75 (0.71 - 0.87) HC 31.7 cm 35w4d (97g1g-98l2q) Hadl HC 96% FL/AC 0.21 (0.20 - 0.24) AC 29.9 cm 33w6d (93e3t-06f9j) Hadl AC 95% HC/AC 1.06 (0.96 - 1.15) FL 6.4 cm 33w0d (16l9x-93a3a) Hadl FL 73% CI 0.75 (0.70 - 0.86) HL 6.0 cm 34w5d (58v2l-91n1e) Memo HL >95 GA for sonogram 33w5d (96k9l-61y4r) Weight Estimate: based on (BPD,HC,AC,FL) Hadlock Weight: 2294 gm (1959-2629gm) Had : 5lbs, 0oz Normal: 1895 gm (1422-2369gm) Had Wt% 95% for 31w5d Heart Rate: 141 bpm Amniotic Fluid Index: 15.5cm (08.7-24.1) Q1: 5.5cm Q2: 3.3cm Q3: 4.0cm Q4: 2.8cm EVAL, PLACENTA Presentation: cephalic Placenta: posterior:right lateral Heart Rate: 141 bpm Amniotic Fluid Volume: normal Anatomy!Normal!Abnormal!Suboptimal!Prev. Seen!Comments Cranium ! ! ! ! x ! Mdl (CSP/Thal! ! ! ! x ! Ventricles ! ! ! ! x ! Choroid Plexu! ! ! ! x ! Cerebellum ! ! ! ! x ! Cisterna M. ! ! ! ! x ! Orbits ! ! ! ! x ! Profile ! ! ! ! x ! Nasal Bone ! ! ! ! x ! Lip ! ! ! ! x ! Spine ! ! ! ! x ! Lungs ! ! ! ! x ! 4 Chamber Hea! ! ! ! x ! LVOT ! ! ! ! x ! RVOT ! ! ! ! x ! 3 Vessel View! ! ! ! x ! 3 Vessel Trac! ! ! ! x ! Cross-over ! ! ! ! x ! Ductal Arch ! ! ! ! x ! Aortic Arch ! ! ! ! x ! Caval View ! x ! ! ! ! Situs ! ! ! ! x ! Diaphragm ! ! ! ! x ! Stomach ! x ! ! ! x ! Bowel ! ! ! ! x ! Kidneys ! x ! ! ! x ! Bladder ! x ! ! ! x ! 3 Vessel Cord! ! ! ! x ! Cord In! ! ! ! x ! Upper Extremi! ! ! ! x ! Hands ! ! ! ! x ! Lower Extremi! ! ! ! x ! Feet ! ! ! ! x ! External Racquel! ! ! ! x ! Placental Cor! ! ! ! x ! CLINICAL SUMMARY IMPRESSION: Single, live, intrauterine at 31w5d size is large for gestational age (LGA) Amniotic fluid volume is within normal limits No malformations were seen within the limitations of ultrasound RECOMMEND: Review GDM screening results Start weekly NST+BPP for multiple risk factors (see above) @ 34 weeks Ultrasound for growth assessment in the 36th week Thank you for allowing us the opportunity to care for your patient Heron Wiseman MD <Electronic Signature> 05/21/2023 10:18am Heron Wiseman MD [facility] ORDERABLES * HCG URINE QUALITATIVE - POINT OF CARE (05/20/2010 10:30 AM ENGINEER STEAM) Only the most recent of5 resultswithin the time period is included. HCG Qual Urine negative Negative [facility] QC Verified yes Yes [facility] PO CT TESTING Urine specimen (specimen) URINE / Unknown 05/20/2010 10:30 AM ENGINEER STEAM Lorenza Flores MD LAB - POINT OF CARE ORDERABLES Performing Organization Address [facility] Co de Phone Number [facility] [address] [place] [address] * DRUG SCREEN URINE ABUSE INHOUSE (03/14/2010 10:30 PM CDT) Amphetamines Screen Urine Negative <1000 ng/ml [facility] Barbiturates Screen Urine Negative <200 ng/ml [facility] Benzodiazepines Screen Urine Negative <200 ng/ml [facility] Cannabinoids Screen Urine Negative <50 ng/ml [facility] Cocaine Screen Urine Negative <50 ng/ml [facility] Opiate Screen Urine Negative <300 ng/ml [facility] Phencyclidine Screen Urine Negative <25 ng/ml [facility] DS Reference Range C [facility] Comment: Drug Abuse Screen provides unconfirmed screening results, which may be used only for medical (ex. treatment) purposes. URINE / Unknown 03/14/2010 1 0:30 PM CDT 03/14/2010 10:34 PM CDT Kit Jane MD LAB - URINE CHEMIS TRY ORDERABLES Performing Organization Address [facility] de Phone Number [facility] [address] [place] [address] * HCG URINE QUALITATIVE (03/14/2010 10:30 PM CDT) Only the most recent of2 resultswithin the time period is included. HCG Qual Urine Negative Negative [facility] URINE / Unknown 03/14/2010 1 0:30 PM CDT 03/14/2010 10:34 PM CDT Kit Jane MD LAB - URINALYSIS O RDERABLES Performing Organization Address [facility] Co de Phone Number [facility] [address] [place] [address] * (ABNORMAL) BLOOD GASES CAPILLARY (03/14/2010 10:14 PM CDT) Only the most recent of3 resultswithin the time period is included. pH Capillary 7.421 7.35 - 7.45 pH Units [facility] pCO2 Capillary 34.5 32 - 45 mm Hg [facility] pO2 Capillary 96.3 83 - 108 mm Hg [facility] Hemoglobin Capillary 13.2 12.0 - 16.0 gm/dl [facility] O2 Saturation Capillary 98.7 95 - 99 % [facility] Oxyhemoglobin Capillary 96.8 94 - 98 % [facility] Carboxyhemoglobin Capillary 1.4(H) 0.0 - 0.8 % [facility] Methemoglobin Capillary 0.5 0.2 - 0.6 % [facility] O2 Content Capillary 18.0 15 - 23 mg/dl [facility] Base Excess Capillary -1.8 -2.0 - 2.0 mmol/L [facility] P50 Capillary 25.50 25.3 - 26.8 mm Hg [facility] Specimen Type/Condition Blood Gas Capillary [facility] CAPILLARY BLOOD / Unknown 03/14/2010 10:14 PM CDT 03/14/2010 10:28 PM CDT Rain Avery DO LAB - BLOOD GASES OR DERABLES Performing Organization Address City/State/[facility] Co de Phone Number [facility] [address] [place] [address] * XR CHEST PA OR AP (03/14/2010 10:10 PM CDT) Only the most recent of15 resultswithin the time period is included. Anatomical Region Laterality Modality Chest Radiographic Sury ging 03/15/2010 8:36 AM CDT Impressions 03/15/2010 11:59 AM CDT Normal. D: Fabian Victor M.D. Narrative 03/15/2010 11:59 AM CDT Exam: Portable chest, AP view. Date: 03/14/2010 at 2210. Comparison: 03/04/2010 at 1628. Findings: The lungs are clear. The cardiothymic silhouette is normal. The osseous structures are intact. Procedure Note Loyd Allen MD - 03/15/2010 Exam: Portable chest, AP view. Date: 03/14/2010 at 2210. Comparison: 03/04/2010 at 1628. Findings: The lungs are clear. The cardiothymic silhouette is normal. The osseous structures are intact. IMPRESSION Normal. D: Fabian Victor M.D. [employer] [facility] O RDERABLES * XR AIRWAY LAT (03/14/2010 10:06 PM CDT) Anatomical Region Laterality Modality Head Radiographic Sury ging 03/15/2010 8:35 AM CDT Impressions 03/15/2010 11:59 AM CDT Normal. D: Fabian Victor M.D. Narrative 03/15/2010 11:59 AM CDT Exam: Lateral airway, single view. Date: 03/14/2010 at 2205. Comparison: 03/04/2010 at 1628. Findings: The airway is widely patent with no evidence of epiglottic, aryepiglottic fold, or adenoid thickening. Visible spine alignment is normal with no evidence of osseous injury. Procedure Note Loyd Allen MD - 03/15/2010 Exam: Lateral airway, single view. Date: 03/14/2010 at 2205. Comparison: 03/04/2010 at 1628. Findings: The airway is widely patent with no evidence of epiglottic, aryepiglottic fold, or adenoid thickening. Visible spine alignment is normal with no evidence of osseous injury. IMPRESSION Normal. D: Fabian Victor M.D. [employer] [facility] [facility] O RDERABLES * (ABNORMAL) DIFFERENTIAL MANUAL (03/14/2010 10:05 PM CDT) Only the most recent of3 resultswithin the time period is included. Comment Manual Diff Done [facility] Band % Manual 1 % [facility] Neutrophils % Manual 74(H) 24 - 66 % [facility] Lymphocytes % Manual 16(L) 22 - 61 % [facility] Monocytes % Manual 4 3 - 15 % [facility] Eosinophils % Manual 3 0 - 10 % [facility] [place] Manual 1 % [facility] Myelocytes % Manual 1 % [facility] RBC Morphology Slight Anisocytosis , Poikylocytos is, Few Teardrop Cells [facility] BLOOD SPECIMEN / Unknown 03/14/2010 10:05 PM CDT 03/14/2010 10:37 PM CDT [facility] - HEMATOLOGY ORD ERABLES Performing Organization Address City/[facility] Co de Phone Number [facility] [address] [place] [address] * (ABNORMAL) CBC W AUTO DIFFERENTIAL (03/14/2010 10:05 PM CDT) Only the most recent of3 resultswithin the time period is included. WBC 15.38(H) 4.5 - 14.5 K/cumm [facility] RBC 4.58 4.10 - 5.10 mill/cumm [facility] Hemoglobin 13.8 12.0 - 16.0 gm/dl [facility] Hematocrit 40.6 36.0 - 47.0 % [facility] MCV 88.6 78.0 - 102.0 cu microns [facility] MCH 30.1 25.0 - 35.0 uug [facility] MCHC 34.0 31.0 - 37.0 % [facility] RDW 13.3 % [facility] MPV 9.2 fl [facility] Platelet Count 391 100 - 400 K/cumm [facility] Comment Manual Diff Done [facility] Comment few large platelets seen [facility] BLOOD SPECIMEN / Unknown 03/14/2010 10:05 PM CDT 03/14/2010 10:20 PM CDT [facility] - HEMATOLOGY ORD ERABLES Performing Organization Address [facility]/ZIP Co de Phone Number [facility] [address] [place] [address] * (ABNORMAL) COMPREHENSIVE METABOLIC PANEL (03/14/2010 10:05 PM CDT) Only the most recent of4 resultswithin the time period is included. Sodium 142 137 - 145 mmol/L [facility] Potassium 4.8 3.5 - 5.1 mmol/L [facility] Chloride 103 98 - 107 mmol/L [facility] CO2 21.6 18 - 27 mmol/L [facility] Glucose 148(H) 70 - 106 mg/dl [facility] BUN 11.2 7 - 18 mg/dl [facility] Calcium 9.7 8.8 - 10.6 mg/dl [facility] Bilirubin Total 0.4(L) 0.6 - 1.4 mg/dl [facility] Protein Total 8.6 6.3 - 8.6 gm/dl [facility] Albumin 5.1 3.7 - 5.6 gm/dl [facility] ALT 21 10 - 30 Units/L [facility] AST 23 10 - 30 Units/L [facility] Alkaline Phosphatase 152 105 - 420 Units/L [facility] Creatinine 0.54 0.31 - 0.88 mg/dl [facility] BLOOD SPECIMEN / Unknown 03/14/2010 10:05 PM CDT 03/14/2010 10:20 PM CDT Rain Avery DO LAB - CHEMISTRY DANGELO REEVES Performing Organization Address City/State/[facility] Co nd Phone Number [facility] [address] [place] [address] * XR AIRWAY AP AND LATERAL (03/04/2010 4:37 PM CDT) Anatomical Region Laterality Modality Head Radiographic Sury ging 03/04/2010 4:46 PM CDT Impressions 03/04/2010 4:46 PM CDT Prominent tonsils as described above. Narrative 03/04/2010 4:46 PM CDT Soft tissue neck dated Mar 04, 2010 04:37:50 PM. History: Respiratory distress. Soft tissue neck is obtained. The prevertebral soft tissues are normal with prominent palatine tonsils identified. Is no evidence of any subglottic narrowing. No other imaging abnormalities are appreciated. Procedure Note Richar Quintero - 03/04/2010 Soft tissue neck dated Mar 04, 2010 04:37:50 PM. History: Respiratory distress. Soft tissue neck is obtained. The prevertebral soft tissues are normal with prominent palatine tonsils identified. Is no evidence of any subglottic narrowing. No other imaging abnormalities are appreciated. IMPRESSION Prominent tonsils as described above. Micah Durand MD DIAGNOSTIC IMAGING O RDERABLES * XR CHEST PA AND LATERAL (03/04/2010 4:36 PM CDT) Anatomical Region Laterality Modality Chest Radiographic Sury ging 03/04/2010 4:43 PM CDT Impressions 03/04/2010 4:43 PM CDT Possible tiny left apical pneumothorax. Recommend clinical correlation, and if clinically warranted either decubitus examinations of the thorax, or chest CT may be obtained. Narrative 03/04/2010 4:43 PM CDT EXAMINATION:Two-view chest dated Mar 04, 2010 04:37:30 PM HISTORY: Respiratory distress, history of pneumothorax. Please evaluate. PA and lateral views of the chest are obtained. Comparison is made to the prior 2 view chest radiograph of February 18. There is a suggestion of a very is tiny pneumothorax in the right apex, though this may represent a summation shadow. If there is clinical question decubitus, or chest CT may be obtained. The cardiothymic silhouette is within normal limits. The lungs are clear without evidence of infiltrate or effusion. No bony or soft tissue abnormalities are appreciated. Procedure Note Richar Quintero - 03/04/2010 EXAMINATION:Two-view chest dated Mar 04, 2010 04:37:30 PM HISTORY: Respiratory distress, history of pneumothorax. Please evaluate. PA and lateral views of the chest are obtained. Comparison is made to the prior 2 view chest radiograph of February 18. There is a suggestion of a very is tiny pneumothorax in the right apex, though this may represent a summation shadow. If there is clinical question decubitus, or chest CT may be obtained. The cardiothymic silhouette is within normal limits. The lungs are clear without evidence of infiltrate or effusion. No bony or soft tissue abnormalities are appreciated. IMPRESSION Possible tiny left apical pneumothorax. Recommend clinical correlation, and if clinically warranted either decubitus examinations of the thorax, or chest CT may be obtained. Micah Durand MD DIAGNOSTIC IMAGING O RDERABLES * LAB RESULTS ORDER (02/21/2010 9:47 AM CDT) Narrative Procedure Note Document, Scanned - 02/21/2010 4:40 AM CDT Scanned Document LAB - THERAPEUTIC DR JOHNSTON MONITORING ORDERABLES * CARDIAC RHYTHM STRIP ORDER (02/21/2010 9:47 AM CDT) Narrative Procedure Note Document, Scanned - 02/21/2010 4:40 AM CDT Scanned Document CARDIAC SERVICES ORD ERABLES * CARDIAC EKG ORDER (02/21/2010 9:47 AM CDT) Narrative Procedure Note Document, Scanned - 02/21/2010 4:40 AM CDT Scanned Document CARDIAC SERVICES ORD ERABLES * (ABNORMAL) BLOOD GASES CAP + COOX PANEL (02/17/2010 8:50 AM CDT) Only the most recent of7 resultswithin the time period is included. pH Capillary 7.463(H) 7.35 - 7.45 pH Units [facility] pCO2 Capillary 39.9 32 - 45 mm Hg [facility] pO2 Capillary 66.1(L) 83 - 108 mm Hg [facility] Hemoglobin Capillary 12.1 12.0 - 16.0 gm/dl [facility] O2 Saturation Capillary 92.5(L) 95 - 99 % [facility] Oxyhemoglobin Capillary 90.2(L) 94 - 98 % [facility] Carboxyhemoglobin Capillary 1.4(H) 0.0 - 0.8 % [facility] Methemoglobin Capillary 1.1(H) 0.2 - 0.6 % [facility] O2 Content Capillary 15.3 15 - 23 mg/dl [facility] Base Excess Capillary 4.4 -2.0 - 2.0 mmol/L [facility] P50 Capillary 26.93(H) 25.3 - 26.8 mm Hg [facility] Specimen Type/Condition Blood Gas Cap/ABL [facility] CAPILLARY BLOOD / Unknown 02/17/2010 8:50 AM CDT 02/17/2010 9:00 AM CDT Osbaldo Arndt MD LAB - BLOOD GASES OR DERABLES [facility] [address] [place] [address] * (ABNORMAL) LYTES (NA K CL CO2) BLOOD (02/17/2010 5:36 AM CDT) Only the most recent of3 resultswithin the time period is included. Sodium 139(DE) 137 - 145 mmol/L [facility] Potassium 3.8 3.5 - 5.1 mmol/L [facility] Chloride 92(L) 98 - 107 mmol/L [facility] CO2 33.2(H) 18 - 27 mmol/L [facility] BLOOD SPECIMEN / Unknown 02/17/2010 5:36 AM CDT 02/17/2010 5:49 AM CDT Osbaldo Arndt MD LAB - CHEMISTRY ORDAnselmo REEVES Performing Organization Address City/[facility]/ZIP Co de Phone Number [facility] [address] [place] [address] * (ABNORMAL) BASIC METABOLIC PANEL (CALCIUM TOTAL) (02/15/2010 12:35 AM CDT) Only the most recent of4 resultswithin the time period is included. Sodium 147(H) 137 - 145 mmol/L [facility] Potassium 3.6 3.5 - 5.1 mmol/L [facility] Chloride 99 98 - 107 mmol/L [facility] CO2 31.2(H) 18 - 27 mmol/L [facility] Glucose 117(H) 70 - 106 mg/dl [facility] BUN 17.0 7 - 18 mg/dl [facility] Calcium 9.5 8.8 - 10.6 mg/dl [facility] Creatinine 0.58 0.31 - 0.88 mg/dl [facility] BLOOD SPECIMEN / Unknown 02/15/2010 12:35 AM CDT 02/15/2010 12:44 AM CDT Jean-Claude Blanchard MD LAB - CHEMISTRY ORDAnselmo [employer] Software[employer]ELSA Performing Organization Address City/[facility]/ZIP Co de Phone Number [facility] [address] [place] [address] * (ABNORMAL) BLOOD GASES CAP + LYTES GLUC CA+ PANEL (02/13/2010 11:20 PM CDT) Only the most recent of3 resultswithin the time period is included. pH Capillary 7.481(H) 7.35 - 7.45 pH Units [facility] pCO2 Capillary 35.8 32 - 45 mm Hg [facility] pO2 Capillary 77.8(L) 83 - 108 mm Hg [facility] Hemoglobin Capillary 9.4(L) 12.0 - 16.0 gm/dl [facility] O2 Saturation Capillary 97.2 95 - 99 % [facility] Oxyhemoglobin Capillary 95.5 94 - 98 % [facility] Carboxyhemoglobin Capillary 0.9(H) 0.0 - 0.8 % [facility] Methemoglobin Capillary 0.9(H) 0.2 - 0.6 % [facility] O2 Content Capillary 12.6(L) 15 - 23 mg/dl [facility] Base Excess Capillary 3.1 -2.0 - 2.0 mmol/L [facility] P50 Capillary 24.13(L) 25.3 - 26.8 mm Hg [facility] Sodium Whole Blood 142 136 - 146 mmol/L [facility] Potassium Whole Blood 3.3(L) 3.4 - 4.5 mmol/L [facility] Chloride WB 103 98 - 106 mmol/L [facility] TCO2 Whole Blood 27.6(H) 18 - 27 mmol/L [facility] Glucose WB 127(H) 70 - 106 mg/dl [facility] Calcium Ionized 1.17 mmol/L [facility] Calcium Ionized Adjusted 1.22 1.15 - 1.29 mmol/L [facility] Specimen Type/Condition Blood Gas Cap/ABL [facility] CAPILLARY BLOOD / Unknown 02/13/2010 11:20 PM CDT 02/13/2010 11:26 PM CDT Osbaldo Arndt MD LAB - BLOOD GASES OR DERABLES Performing Organization Address City/State/[facility] Co de Phone Number [facility] [address] [place] [address] * CULTURE URINE+GRAM STAIN (02/13/2010 6:25 PM CDT) Report [facility] Comment: Final - GRAM STAIN Rare WBC's Rare RBC'S No organisms seen CULTURE NO GROWTH (<1000 CFU/ml) URINE SPECIMEN COLLECTION, CATHETERIZED / Unknown 02/13/2010 6:25 PM CDT 02/13/2010 6:34 PM CDT Zahira M Samraluana [facility] LAB - MICROBIO LOGY ORDERABLES Performing Organization Address City/[facility]/ZIP Co de Phone Number [facility] [address] [place] [address] * CULTURE BLOOD (02/13/2010 6:25 PM CDT) Report [facility] Comment: Final - BOTTLE(S) RECEIVED- ANTIBIOTIC REMOVAL BOTTLE CULTURE No growth PERIPHERAL BLOOD / Unknown 02/13/2010 6:25 PM CDT 02/13/2010 6:34 PM CDT Zahira M Samraluana [facility] LAB - MICROBIO LOGY ORDERABLES Performing Organization Address [facility] Co de Phone Number [facility] [address] [place] [phone] * XR ABDOMEN 1 VW (02/13/2010 3:53 PM CDT) Anatomical Region Laterality Modality Abdomen Radiographic Sury ging 02/13/2010 4:08 PM CDT Narrative 02/13/2010 4:08 PM CDT Abdomen dated Feb 13, 2010 03:54:02 PM. History: Feeding tube placement. Portable abdomen demonstrates a nasogastric tube in the stomach, and a weighted tip feeding tube seen with its tip in the region of the second portion of the duodenum. The abdomen is otherwise gasless. No other imaging changes are noted. Procedure Note Richar Quintero - 02/13/2010 Abdomen dated Feb 13, 2010 03:54:02 PM. History: Feeding tube placement. Portable abdomen demonstrates a nasogastric tube in the stomach, and a weighted tip feeding tube seen with its tip in the region of the second portion of the duodenum. The abdomen is otherwise gasless. No other imaging changes are noted. Zahira Killian [facility] DIAGNOSTIC SURY GING ORDERABLES * (ABNORMAL) HGB HCT PANEL (02/10/2010 4:50 PM CDT) Hemoglobin 11.1(L) 12.0 - 16.0 gm/dl [facility] Hematocrit 33.0(L) 36.0 - 47.0 % [facility] BLOOD SPECIMEN / Unknown 02/10/2010 4:50 PM CDT 02/10/2010 5:01 PM CDT Debbie Vazquez MD LAB - HEMATOLOGY ORD ERABLES Performing Organization Address City/[facility]/ZIP Co de Phone Number [facility] [address] [place] [address] * CULTURE RESPIRATORY (02/10/2010 3:15 PM CDT) Report [facility] Comment: Final - GRAM STAIN Heavy WBC's Rare RBC'S Heavy gram positive cocci Rare gram positive cocci CULTURE STREPTOCOCCUS PNEUMONIAE Heavy Cefotax (mening) SONU Susceptible 0.016 Cefotax(nonmenin) SONU Susceptible 0.016 Clindamycin nKB Susceptible 26 Erythromycin nKB Susceptible 27 Meropenem SONU Susceptible 0.016 Pen (oral) SONU Susceptible 0.023 Pen(IV/IM)mening SONU Susceptible 0.023 Pen(IV/IM)nonmen SONU Susceptible 0.023 Vancomycin nKB Susceptible 22 STAPHYLOCOCCUS AUREUS Heavy Cefazolin SONU Susceptible <=4 Ceftriaxone SONU Susceptible <=4 Clindamycin SONU Susceptible<=0.25 Erythromycin SONU Susceptible<=0.25 Oxacillin SONU Susceptible<=0.25 Trimeth/Sulfa SONU Susceptible<=0.5/9.5 Vancomycin SONU Susceptible 1 NEISSERIA SPECIES Heavy HAEMOPHILUS PARAINFLUENZAE Moderate HAEMOPHILUS INFLUENZAE Moderate Beta Lactamase Test negative UPPER RESPIRATORY FLUID SPECIMEN OBTAINED BY TRACHEAL ASPIRATION / Unknown 02/10/2010 3:15 PM CDT 02/10/2010 3:30 PM CDT Desire Thompson APRN-AUNG LAB - MICROBI OLOGY ORDERABLES Performing Organization Address [facility]/ZIP Co de Phone Number [facility] [address] [place] [address] * (ABNORMAL) PT PTT PANEL (02/10/2010 8:00 AM CDT) PT 14.9(H) 12.2-14.5 seconds seconds [facility] INR 1.1 0.8 - 1.2 [facility] PTT 34 23-36 seconds seconds [facility] BLOOD SPECIMEN / Unknown 02/10/2010 8:00 AM CDT 02/10/2010 8:06 AM CDT Narrative [facility] - 02/10/2010 8:53 AM CDT AUTO REORDER DUE TO SPECIMEN REJECT Osbaldo Arndt MD LAB - COAGULATION OR DERABLES Performing Organization Address [facility] Co de Phone Number [facility] [address] [place] [address] * (ABNORMAL) CBC W MANUAL DIFFERENTIAL (02/10/2010 7:10 AM CDT) WBC 17.67(H) 4.5 - 14.5 K/cumm [facility] RBC 3.59(L) 4.10 - 5.10 mill/cumm [facility] Hemoglobin 10.9(L) 12.0 - 16.0 gm/dl [facility] Hematocrit 32.1(L) 36.0 - 47.0 % [facility] MCV 89.4 78.0 - 102.0 cu microns [facility] MCH 30.4 25.0 - 35.0 uug [facility] MCHC 34.0 31.0 - 37.0 % [facility] RDW 12.8 % [facility] MPV 9.6 fl [facility] Platelet Count 339 100 - 400 K/cumm [facility] Comment Manual Diff Done [facility] Band % Manual 2 % [facility] Neutrophils % Manual 75(H) 24 - 66 % [facility] Lymphocytes % Manual 12(L) 22 - 61 % [facility] Monocytes % Manual 5 3 - 15 % [facility] Atypical Lymphocyte % Manual 6 % [facility] RBC Morphology Normal [facility] BLOOD SPECIMEN / Unknown 02/10/2010 7:10 AM CDT 02/10/2010 7:17 AM CDT Osbaldo Arndt MD LAB - HEMATOLOGY ORD ERABLES Performing Organization Address [facility]/ZIP Co de Phone Number [facility] [address] [place] [address] * CULTURE MRSA (02/10/2010 3:00 AM CDT) Report [facility] Comment: Final - CULTURE No growth of OXACILLIN RESISTANT STAPHYLOCOCCUS AUREUS SPECIMEN FROM NASAL FOSSAE / Unknown 02/10/2010 3:00 AM CDT 02/10/2010 3:57 AM CDT Osbaldo Arndt MD LAB - MICROBIOLOGY O RDERABLES [facility] [address] [place] [address] * EKG 12-LEAD (02/10/2010) Osbaldo Arndt MD ECG ORDERABLES Care Teams Shift Coordinator Relationship Specialty Start Date End Date Steff Reyes MD PCP - General 02/10/10
--- OUTSIDE RECORDS SUMMARY | 2024-07-24 10:22 | XMS_ITS | Referral Summary ---
Author Organization [facility] Address [address] [place] [address] Care Team Providers Care Energy Efficiency Engineer Name Role Phone Steff Reyes MD Primary Care Provider Source Comments [facility],non-owned Affiliates and Associated Physician Practices is amultiple site organization consisting of ambulatory clinics and hospital sitesin [place], [place], [place] and [place]. This disclosure is being madepursuant to the Care Everywhere program and may not contain all information available regarding this patient. Last updated 18.[facility] Encounters Date Type Department Care Team Description 05/30/2024 1:54 PM DECORATING MACHINE OPERATOR - 05/30/2024 11:59 PM DECORATING MACHINE OPERATOR Hospital Encounter [facility] Women's Health Maternal & Care [facility] [place] [address] Heron Wiseman MD Discharge Disposition: Home or Self Care from Last 3 Months Allergies No known active allergies Medications * Be aware that medications may not be up to date on this document. Alwaysverify current medications with the patient. Medication Sig Dispensed Refills Start Date End Date Status acetaminophen (TYLENOL) 325 MG tablet Take 1-2 Tabs by mouth every 4 hours as needed for Fever and Pain. Maximum allowable Acetaminophen amount = 4 Grams / 24 hours. 0 05/06/2010 Active Additional Information Patient not taking.Reported on 03/31/2023 hydrocodone-acetam inophen (VICODIN) 5-500 MG tablet Take 1-2 Tabs by mouth every 6 hours as needed for Pain. 30 Tab 0 05/06/2010 Active Additional Information Patient not taking.Reported on 03/31/2023 methylPREDNISolone (MEDROL DOSEPAK) 4 MG tablet Take by mouth as directed. 21 Packet 0 05/20/2010 Active Additional Information Patient not taking.Reported on 03/31/2023 fluticasone hfa 110 (FLOVENT HFA 110) 110 MCG/ACT inhaler Inhale by mouth daily. Use once a day with the aerochamber starting one week after surgery. You will continue on this dose until otherwise directed at follow up. 3 Inhaler 3 05/27/2010 Active Additional Information Patient not taking.Reported on 03/31/2023 fluticasone hfa 110 (FLOVENT HFA 110) 110 MCG/ACT inhaler Inhale by mouth 2 times daily. Use twice daily for one more week. Use with aerochamber. 3 Inhaler 0 05/20/2010 Active Additional Information Patient not taking.Reported on 03/31/2023 aspirin EC (Ecotrin) 81 MG tablet Take 1 (one) tablet by mouth once daily Active ondansetron (Zofran) 4 MG tabletIndications: Nausea and/or Vomiting in Take 1 (one) tablet by mouth every 6 hours as needed for Nausea/Vomiting Reasons: Nausea and Vomiting in Active Active Problems Problem Noted Date Diagnosed Date [...] Comments Blood Pressure 131/79 06/18/2023 11:20 AM DECORATING MACHINE OPERATOR Pulse 88 06/18/2023 11:20 AM DECORATING MACHINE OPERATOR Temperature 36.4 C (97.6 F) 05/20/2010 1:25 PM DECORATING MACHINE OPERATOR Respiratory Rate 16 05/20/2010 2:00 PM DECORATING MACHINE OPERATOR Oxygen Saturation 99% 06/18/2023 11:20 AM DECORATING MACHINE OPERATOR Inhaled Oxygen Concentration 100% 02/18/2010 6 :00 PM CDT Weight 92.2 kg (203 lb 4.8 oz) 03/31/2023 10:03 AM CDT Height 162.6 cm (5' 4 ) 03/31/2023 10:03 AM CDT Body Mass Index 34.9 03/31/2023 10:03 AM CDT Plan of Treatment Not on file Care Teams Energy Efficiency Engineer Relationship Specialty Start Date End Date Steff Reyes MD PCP - General 02/10/10
--- OUTSIDE RECORDS SUMMARY | 2024-07-24 10:22 | XMS_ITS | Clinical Summary ---
Author Organization [facility] Address [address] [place] [address] Care Team Providers Care Cable Television Technician Name Role Phone Steff Reyes MD Primary Care Provider [phone] Source Comments [facility],non-owned Affiliates and Associated Physician Practices is amultiple site organization consisting of ambulatory clinics and hospital sitesin [place], [place], [place]. This disclosure is being madepursuant to the Care Everywhere program and may not contain all information available regarding this patient. Last updated 18.[facility] Allergies No known active allergies Medications * [...] Encounter for feeding tube placement 02/13/2010 05/20/2010 Encounters Date Type Department Care Team Description 05/30/2024 1:54 PM EDGE INKER - 05/30/2024 11:59 PM [facility] Hospital Encounter [facility] Maternal & Care [address] [place], [place] [id number] Heron Wiseman MD Discharge Disposition: Home or Self Care from Last 3 Months Family History Medical History Relation Name Comments Asthma Brother Asthma Father Cancer - Lung Maternal Grandmother Cancer - Uterine Maternal Grandmother hys terectomy Autism Spectrum Disorder Other 7 Autism Spectrum Disorder Other 8 Anesthesia Reaction Neg Hx Bleeding Disorders Neg Hx Bronchitis Neg Hx Childhood Hearing Disorder Neg Hx Cystic Fibrosis Neg Hx Emphysema Neg Hx Immunodeficiency Neg Hx Tuberculosis Neg Hx Relation Name Status Comments Brother Daughter Alive Father Maternal Grandmother Mother hysterectomy at 30y Other 1 Fetus - Spontaneous trisomy 18 Other 2 Steve Alive Other 3 Fetus - Spontaneous Other 4 Alive Other 5 Alive Other 6 Alive Other 7 Alive chromosome hailey tion? Other 8 Alive Other 9 Alive Other 10 Alive Other 11 Alive Other 12 Alive Other 13 Alive Son Alive Social History Tobacco Use Types Packs/Day Years [...] Comments Blood Pressure 131/79 06/18/2023 11:20 AM EDGE INKER Pulse 88 06/18/2023 11:20 AM EDGE INKER Temperature 36.4 C (97.6 F) 05/20/2010 1:25 PM EDGE INKER Respiratory Rate 16 05/20/2010 2:00 PM EDGE INKER Oxygen Saturation 99% 06/18/2023 11:20 AM EDGE INKER Inhaled Oxygen Concentration 100% 02/18/2010 6 :00 PM CDT Weight 92.2 kg (203 lb 4.8 oz) 03/31/2023 10:03 AM CDT Height 162.6 cm (5' 4 ) 03/31/2023 10:03 AM CDT Body Mass Index 34.9 03/31/2023 10:03 AM CDT Plan of Treatment Health Maintenance Due Date Last Done Comments PAP SMEAR 1996 HIV SCREENING 2011 HEPATITIS C SCREENING 06/13/2014 DTAP/TDAP/TD VACCINES (1 - Tdap) 2015 HEPATITIS B VACCINE (1 of 3 - 19+ 3-dose series) 2015 PNEUMOCOCCAL VACCINE (1 of 2 - PCV) 2015 COVID-19 VACCINE (2 - 2023-2 5 season) 2024 04/29/2021 INFLUENZA VACCINE (#1) 2024 0, 03/18/2016 DEPRESSION SCREENING 06/14/2024 ZOSTER VACCINE (1 of 2) 2046 HIB VACCINE Aged Out No longer eligi ble based on patient's age to complete this topic HPV VACCINE Aged Out No longer eligi ble based on patient's age to complete this topic MENINGOCOCCAL (Group B) VACCINE Aged Out No longer eligible b ased on patient's age to complete this topic MENINGOCOCCAL VACCINE Aged Out No umberto gabriella eligible based on patient's age to complete this topic Care Teams Cable Television Technician Relationship Specialty Start Date End Date Steff Reyes MD PCP - General 02/10/10
--- OUTSIDE RECORDS SUMMARY | 2024-07-24 10:22 | XMS_ITS | Continuity of Care Document ---
Author Organization [facility] Address [address] [place] [address] [place] [address] Phone Care Team Providers Care Botany Technician Name Role Phone Neil Nix MD Unavailable Unavailable Allergies, Adverse Reactions, Alerts Substance Reaction Status Criticality No Known Allergies Active No Inform ation Medications Medication Instructions Dosage Effective Dates (start - stop) Status Comments Abilify 5 mg tablet take 0.5 tablet by oral route every day 2.5 MG - Active Klonopin 0.5 mg tablet take 1 tablet by oral route 2 times every day 0.5 MG - Active Procedures Procedure Date PREV VISIT, NEW, AGE 18-39 OFFICE/OUTPATIENT VISIT, [facility] Advance Directives Directive Yes / No Effective Date File Name No Information Encounters Encounter Description Practice Location Reason(s) For Visit Diagnoses Date Provider Providers Copied on Encounter [facility] [place], [address], [place], [place], [id number], [place] tel:[phone] [facility], [place] No Information [address], [place], [place], [id number] , [place]. tel:[phone] Referring Provider: Neil Nix, [address], [place], [place], [id number]. tel:[phone] PREV VISIT, NEW, AGE 18-39 [facility], [place], [address] [employer], [place], [place], [id number], [place] tel:[phone] [facility] Medicine Physical (chief complaint) Encounter for general adult medical exam w abnormal findingsBipolar disorder, unspecifiedBody mass index (BMI) 50-59.9 , adult Nov- 7 Nix Neil. [address], [facility] [address], [place], [place], [id number] , [place]. [phone] Referring Provider: Neil Nix [address], [place], [place], [id number]. tel:[phone] Family History Family Member Type Diagnosis Age At Onset Father Problem (finding) Unknown Mother Problem (finding) Alive and well Brother Problem (finding) Asthma Payers Payer name Insurance type Covered green party ID Authoriza tion(s) No Information Social History Type Description Quantity Date Captured Comments Sex Female Smoking Status No Information Chief Complaint And Reason For Visit No Information Plan Of Treatment Date Type Action Status No Information History Of Present Illness Encounter Date Complaint History Of Prese nt Illness Physical pt needs annual phhysical. Pt has bipolar depression and anxiety Pt used to take abilify and klonpin as a child but she has not been taking above med for 4 years. Pt has been feeling more depresssed recenlty and she actually had some suicidal idealtion. [facility] and she seeen the psychiatrist and was started back on abilfy and klonopin Pt states that she tried multiple SSRIs in the past but did not work. Pt doing ok with current meds Pt denies any suicidal or homicidal thought Pt is doing counseling now at [facility] and she will see psychiatrist soon Pt feels much better Instructions Date Instruction Additional Infor mation Prescribed Activity and Exercise Education Related to Dietary Surveillance and Counseling Prescribed Diet Educ ation/Lifestyle Education Regarding Diet Related to Dietary Surveillance and Counseling Assessments Type Assessment Date No Information
[2024-07-24 10:32] LABS: Cholesterol 199 mg/dL (0-200); HDL Direct 32 mg/dL; Hemoglobin A1C 5.4 % (<5.7); Triglycerides 292 mg/dL (<150)
[2024-07-24 10:35] LABS: Iron 47 ug/dL (37-170)
[2024-07-24 10:42] LABS: LDL Cholesterol Direct 111 mg/dL
[2024-07-24 10:47] LABS: Percent Iron Saturation 11 % (20-50)
[2024-07-25 12:19] LABS: Insulin Level Total 29.9 uIU/mL
== END 2024-07-24 09:43 | disposition home or self-care (01) ==
LOC: ANHLAB 09:43
PROVIDERS: Visit Provider Obstetrics & Gynecology
DX: E28.2 Polycystic ovarian syndrome (principal)
CPT/HCPCS: 36415; 80061; 82728; 83036; 83525; 83527; 83540; 83550; 84402; 84403; 84443; 85025